=== PATIENT | male | born 1945 | race Caucasian/White ===

== ENCOUNTER → 2016-07-17 | Outpatient (CLI) | payer OTHER ==
[~2016-07-17] MED LIST: EZET10TA63 PO; FERR1TAB24 PO; GABA-113 PO; LOSA1TAB38 PO; MAGN400T6 PO; NORT10CA2 PO; NRV/10 PO; OXYC-643 PO; PRLSR20 PO; SNG10 PO; ZNF4 PO
[2016-07-17 13:45] LABS: BLOOD UREA NITROGEN 16 mg/dl (7-18); CREATININE 0.94 mg/dl (0.60-1.40); GLUCOSE 97 mg/dl (70-99)
[2016-07-17 13:46] LABS: ALT/SGPT 15 U/L (12-78); AST/SGOT 17 U/L (15-37); BUN/CREATININE RATIO 16.6 (10-20); CARBON DIOXIDE 29 mmol/L (21-32); CHLORIDE 104 mmol/L (98-107); POTASSIUM 3.8 mmol/L (3.5-5.1); SODIUM 141 mmol/L (136-145)
[2016-07-17 13:48] LABS: CHOLESTEROL 175 mg/dl (0-200); CHOLESTEROL/HDL RATIO 3.1; HDL CHOLESTEROL 57 mg/dl; LDL CHOLESTEROL CALCULATED 99 mg/dl; TRIGLYCERIDES 93 mg/dl (0-150); VERY LOW DENSITY LIPOPROT CALC 19 mg/dl
== END | disposition home or self-care (01) ==
LOC: C.LABMFLN 08:38
PROVIDERS: ATTEND Family Medicine
DX: I10 Essential (primary) hypertension (principal); E78.5 Hyperlipidemia, unspecified; E83.42 Hypomagnesemia

== ENCOUNTER → 2016-10-02 | Outpatient (CLI) | payer OTHER ==
[2016-10-02 14:04] LABS: BLOOD UREA NITROGEN 17 mg/dl (7-18); BUN/CREATININE RATIO 15.9 (10-20); CALCIUM 8.9 mg/dl (8.5-10.1); CARBON DIOXIDE 33 mmol/L (21-32); CHLORIDE 102 mmol/L (98-107); GLUCOSE 87 mg/dl (70-99); POTASSIUM 3.6 mmol/L (3.5-5.1); SODIUM 138 mmol/L (136-145)
[2016-10-02 14:28] LABS: BASO % 0.4 %; BASO ABS # 0.03 K/uL (0-0.2); COMPLETE YES; EOS % 0.7 %; HEMATOCRIT 40.1 % (42-52); IG% 0.1 %; LYMPH ABS # 2.13 K/uL (1.2-3.4); MEAN CELL VOLUME 87.6 fL (80-100); MEAN CORPUSCULAR HEMOGLOBIN 29.7 pg (25-34); MEAN CORPUSCULAR HGB CONC 33.9 g/dl (32-36); MONO % 10.2 %; NEUT % 59.6 %; PLATELET COUNT 228 K/uL (130-400); RED BLOOD COUNT 4.58 M/uL (4.7-6.1); WHITE BLOOD COUNT 7.35 K/uL (4.8-10.8)
== END | disposition home or self-care (01) ==
LOC: C.LABMFLN 08:33
PROVIDERS: ATTEND Family Medicine
DX: I10 Essential (primary) hypertension (principal); R60.9 Edema, unspecified; R00.2 Palpitations

== ENCOUNTER → 2017-01-02 | Outpatient (CLI) | payer OTHER ==
[2017-01-02 13:08] LABS: ALT/SGPT 20 U/L (12-78); AST/SGOT 13 U/L (15-37); BLOOD UREA NITROGEN 18 mg/dl (7-18); BUN/CREATININE RATIO 18.6 (10-20); CALCIUM 8.9 mg/dl (8.5-10.1); CARBON DIOXIDE 31 mmol/L (21-32); CHLORIDE 101 mmol/L (98-107); CHOLESTEROL 187 mg/dl (0-200); CREATININE 0.99 mg/dl (0.60-1.40); GLUCOSE 98 mg/dl (70-99); POTASSIUM 4.1 mmol/L (3.5-5.1); SODIUM 138 mmol/L (136-145); TRIGLYCERIDES 124 mg/dl (0-150); VERY LOW DENSITY LIPOPROT CALC 25 mg/dl
[2017-01-02 13:12] LABS: CHOLESTEROL/HDL RATIO 3.5; HDL CHOLESTEROL 54 mg/dl; LDL CHOLESTEROL CALCULATED 108 mg/dl; PROSTATE SPECIFIC ANTIGEN 0.787 ng/ml (0.000-4.000)
== END | disposition home or self-care (01) ==
LOC: C.LABMFLN 10:37
PROVIDERS: ATTEND Family Medicine
DX: I10 Essential (primary) hypertension (principal); E78.5 Hyperlipidemia, unspecified; E83.42 Hypomagnesemia; Z12.5 Encounter for screening for malignant neoplasm of prostate; R00.2 Palpitations

== ENCOUNTER 2022-01-17 08:38 | Inpatient (IN) ==
--- NOTE | 2021-12-14 09:15 | PAT Medication Instructions ---
Medication Instructions Date of Service December 14, 2021 Home Medications Medication Instructions Recorded albuterol sulfate 90 mcg/actuation 2 puffs inhalation Q4H PRN 07/18/18 aerosol inhaler shortness of breath or wheezing #18 grams tizanidine 4 mg tablet 4 mg PO ONCE PRN muscle spasticity 12/31/20 #90 tabs gabapentin 300 mg capsule 300 mg PO TID #240 caps 04/11/21 metoprolol succinate 25 mg 12.5 mg PO .QHS #45 tabs 08/11/21 tablet,extended release 24 hr oxycodone-acetaminophen 5 mg-325 2 tab PO Q6H PRN pain #100 tabs 09/12/21 mg tablet alendronate 70 mg tablet 70 mg PO WEEKLY #12 tabs 12/09/21 albuterol sulfate 90 mcg/actuation aerosol inhaler 2 puffs inhalation Q4H PRN tizanidine 4 mg tablet 4 mg PO ONCE PRN gabapentin 300 mg capsule 300 mg PO TID metoprolol succinate 25 mg tablet,extended release 24 hr 12.5 mg PO .QHS oxycodone-acetaminophen 5 mg-325 mg tablet 2 tab PO Q6H PRN alendronate 70 mg tablet 70 mg PO WEEKLY cetirizine 10 mg tablet (Zyrtec) 10 mg PO QAM ezetimibe 10 mg tablet 10 mg PO QPM ferrous sulfate 325 mg (65 mg iron) tablet (iron) 325 mg PO QAM losartan 100 mg tablet 100 mg PO QPM magnesium gluconate 27 mg magnesium (500 mg) tablet 27 mg PO QAM montelukast 10 mg tablet 10 mg PO QPM nortriptyline 10 mg capsule 10 mg PO QPM omeprazole 20 mg capsule,delayed release 20 mg PO QAM Continue as directed alendronate 70 mg tablet 70 mg PO WEEKLY (do NOT take day of surgery) DO NOT take the morning of surgery tizanidine 4 mg tablet 4 mg PO ONCE PRN cetirizine 10 mg tablet (Zyrtec) 10 mg PO QAM ferrous sulfate 325 mg (65 mg iron) tablet (iron) 325 mg PO QAM magnesium gluconate 27 mg magnesium (500 mg) tablet 27 mg PO QAM Take morning of surgery With a small sip of water, OTHERWISE NOTHING TO EAT OR DRINK AFTER MIDNIGHT: albuterol sulfate 90 mcg/actuation aerosol inhaler 2 puffs inhalation Q4H PRN (use if needed; please bring with you to hospital day of surgery if possible) gabapentin 300 mg capsule 300 mg PO TID oxycodone-acetaminophen 5 mg-325 mg tablet 2 tab PO Q6H PRN(if needed) omeprazole 20 mg capsule,delayed release 20 mg PO QAM Take evening before surgery albuterol sulfate 90 mcg/actuation aerosol inhaler 2 puffs inhalation Q4H PRN(if needed) gabapentin 300 mg capsule 300 mg PO TID metoprolol succinate 25 mg tablet,extended release 24 hr 12.5 mg PO .QHS oxycodone-acetaminophen 5 mg-325 mg tablet 2 tab PO Q6H PRN(if needed) ezetimibe 10 mg tablet 10 mg PO QPM losartan 100 mg tablet 100 mg PO QPM montelukast 10 mg tablet 10 mg PO QPM nortriptyline 10 mg capsule 10 mg PO QPM Other Notes If you have any questions please call us at [phone] or [phone] or [phone] or [phone]
--- NOTE | 2021-12-19 11:35 | Anesthesiology Consultation ---
Date of Service December 19, 2021 Assessment & Plan (1) Encounter for pre-operative examination: - COVID screening: Per assessment on 12/13: No known COVID-19 positive contacts or current COVID-19 related symptoms. Travel screen negative. Patient vaccinated. At surgeon discretion if preop Covid testing being done. - Patient acceptable risk for surgery pending surgeon-ordered PCP preop evaluation ([facility], appt 12/30). Chart Review Chart Review: Patient seen in Pre Admission Testing Teaching & Discussion Pre-Anesthesia Teaching/Discussion Notes: Instructed NPO after midnight before surgery,except medications with 15 cc of water. Medication instructions provided according to the PAT guidelines. History Surgery Operation Date: 01/17/22 11:05 Proposed Procedures p L3-L5 Decompression and Fusion, Spinal Cord Monitoring - Bryant Ayala DO Height/Weight Height: 5 ft 9 in Weight: 72.8 kg Allergies Allergy/AdvReac Type Severity Reaction Status Date / Time meloxicam AdvReac Unknown CHF Verified 12/13/21 13:25 Medications Home Medications Medication Instructions Recorded Confirmed Last Taken albuterol sulfate 90 mcg/actuation 2 puffs inhalation Q4H PRN 07/18/18 12/13/21 Unknown aerosol inhaler shortness of breath or wheezing #18 grams tizanidine 4 mg tablet 4 mg PO ONCE PRN muscle spasticity 12/31/20 12/13/21 Unknown #90 tabs gabapentin 300 mg capsule 300 mg PO TID #240 caps 04/11/21 12/13/21 Unknown metoprolol succinate 25 mg 12.5 mg PO .QHS #45 tabs 08/11/21 12/13/21 Unknown tablet,extended release 24 hr oxycodone-acetaminophen 5 mg-325 2 tab PO Q6H PRN pain #100 tabs 09/12/21 12/13/21 Unknown mg tablet alendronate 70 mg tablet 70 mg PO WEEKLY #12 tabs 12/09/21 12/13/21 Unknown cetirizine 10 mg tablet (Zyrtec) 10 mg PO QAM 12/13/21 12/13/21 Unknown ezetimibe 10 mg tablet 10 mg PO QPM 12/13/21 12/13/21 Unknown ferrous sulfate 325 mg (65 mg 325 mg PO QAM 12/13/21 12/13/21 Unknown iron) tablet (iron) losartan 100 mg tablet 100 mg PO QPM 12/13/21 12/13/21 Unknown magnesium gluconate 27 mg 27 mg PO QAM 12/13/21 12/13/21 Unknown magnesium (500 mg) tablet montelukast 10 mg tablet 10 mg PO QPM 12/13/21 12/13/21 Unknown nortriptyline 10 mg capsule 10 mg PO QPM 12/13/21 12/13/21 Unknown omeprazole 20 mg capsule,delayed 20 mg PO QAM 12/13/21 12/13/21 Unknown release Past Medical History Medical History Asthma Stable Benign essential hypertension Cervicalgia of ldqivmon-fhinpgm-gmbcx region GERD (gastroesophageal reflux disease) History of CHF (congestive heart failure) 10+ years ago felt 2/2 meloxicam reaction, previously evaluated by cardio, echo 05/2020 History of diverticulitis 5+ years ago [place] (hard of hearing) Hyperlipidemia Lumbar radiculopathy Osteopenia Osteoporosis Syncopal episodes 1+ years ago r/t hypotension - no issues since BP meds adjusted Thoracic outlet syndrome associated with cervical rib Exercise / Class Metabolic Activity III < 4 Walking/Shop/Light housework (one FS (no CP, + SOB)) Past Family History Family History Mother Cervical cancer Other Colonic polyp Colorectal cancer No family history of adverse response to anesthesia Past Surgical History Surgical History Cervical vertebral fusion limited ROM side to side H/O arthroscopic knee surgery Rt History of cataract surgery History of colonoscopy with polypectomy History of prostate biopsy benign History of tooth extraction History of umbilical hernia repair Past Anesthesia History No Hx of Anesthesia Complications and No Family Hx of Anesthesia Complications History of PONV No Hx of PONV and No Hx of Motion Sickness Social History tobacco type: pipe and cigars Do You Dip or Chew Tobacco: No Hx Alcohol Use: Yes alcohol intake frequency: holidays/special occasions only Hx Substance Use: No substance use type: does not use Review of Systems Hx palpitations s/p unremarkable holter monitoring per pt. Patient denies chest pain, shortness of breath, fever, chills, cough, wheezing. Physical Exam Vital Signs VITALS BP 128/75 P 63 TEMP 98.2 SP02 99%RA RESP 18 PHYSICAL Mildly decreased cervical extension range of motion. Full TMJ range of motion. TMD 3 finger breaths Mallampati Score 3 Dentition: upper plate with implants Lungs: clear throughout to auscultation Cardiac: regular rate and rhythm, no murmurs noted Spine: normal Carotid arteries: negative bruit Extremities: no edema Lab Results Anesthesia Preop Results Results Anesthesia Widget: WBC 8.59 K/ul (4.8-10.8) 12/19/21 Hgb 12.9 g/dl (14.0-18.0) L 12/19/21 Hct 38.7 % (40.1-51.0) L 12/19/21 Plt 249 K/uL (130-400) 12/19/21 Na 139 mmol/L (136-145) 12/19/21 K 3.9 mmol/L (3.5-5.1) 12/19/21 Cl 103 mmol/L (98-107) 12/19/21 CO2 31 mmol/L (21-32) 12/19/21 BUN 22 mg/dl (6-23) 12/19/21 Creat 0.95 mg/dl (0.6-1.4) 12/19/21 Glucose Level 87 mg/dl (70-99(Fasting)) 12/19/21 PT 10.6 Seconds (9.0-12.0) 12/19/21 PTT 28.8 Seconds (21.0-31.0) 12/19/21 INR 1.0 (0.9-1.1) 12/19/21 Urine Color Yellow 12/19/21 Urine Appearance Clear (Clear) 12/19/21 Urine pH 7.0 (4.5-7.5) 12/19/21 Urine Specific [place] 1.019 (1.000-1.030) 12/19/21 Urine Protein 1+ (Negative) H 12/19/21 Urine Glucose (UA) Negative (Negative) 12/19/21 Urine Ketones Negative (Negative) 12/19/21 Urine Blood Negative (Negative) 12/19/21 Urine Nitrite Negative (Negative) 12/19/21 Urine Bilirubin Negative (Negative) 12/19/21 Urine Urobilinogen Negative (Negative) 12/19/21 Urine Leukocyte Esterase Negative (Negative) 12/19/21 Urine WBC (Auto) 1-5 /hpf (0-5) 12/19/21 Urine RBC (Auto) 0-4 /hpf (0-4) 12/19/21 Urine Hyaline Casts (Auto) 1-5 /lpf (0-5) 12/19/21 Urine Epithelial Cells (Auto) 10-20 /lpf (0-5) H 12/19/21 Urine Bacteria (Auto) Negative (Negative) 12/19/21 Blood Type A Negative 12/19/21 Antibody Screen NEGATIVE 12/19/21 Testing Electrocardiogram Date: 12/19/21 NSR at 63bpm. Rightward axis. Chest X-Ray Date: 12/19/21 Findings: + NAD Echocardiogram Date: 05/26/20 EF 65-70%. No RWMA. No significant change compared to 10/05/16 per report. COVID-19 Risk Screen Screening Information COVID-19 Screen Date: 12/19/21 Exposure 21 Days Family/Household +COVID Last 21 Days: No Exposure 10 Days Any COVID Exposure Last 10 Days: No Symptoms Last 10 Days Experienced COVID Sx Last 10 Days: No + COVID 0-90 Days COVID + in Last 0-90 Days: No
[~2022-01-17 08:38] MED LIST changes: +ACETAMINOPHEN 500 MG TAB PO SCH; +CeleBREX 200 MG CAP PO SCH; -EZET10TA63 PO; -FERR1TAB24 PO; -GABA-113 PO; +GABAPENTIN 300 MG CAP PO SCH; -LOSA1TAB38 PO; +LR 15ML/HR IV SCH; -MAGN400T6 PO; -NORT10CA2 PO; -NRV/10 PO; -OXYC-643 PO; -PRLSR20 PO; -SNG10 PO; -ZNF4 PO; +ceFAZolin 2000MG 2,000 MG/15 ML SYR IV SCH
[2022-01-17] MEDS ORDERED: fentaNYL citrate 100 MCG/2 ML VIAL ONE ×2 (09:32→12:39)
[2022-01-17] MEDS ORDERED: MIDAZOLAM HCL 1 MG/ML 2ML VIAL ONE (09:32)
--- NOTE | 2022-01-17 09:51 | History & Physical Bridge Note ---
Date of Service January 17, 2022 History & Physical Bridge Note I have examined the patient, reviewed the History & Physical and in the interval since the performance of the History & Physical I have noted the following changes of clinical significance: no changes noted
--- NOTE | 2022-01-17 09:52 | History & Physical Report ---
Date of Service January 17, 2022 Assessment & Plan (1) Lumbar spinal stenosis: Plan: Lumbar decompression and fusion L3-L5. History of Present Illness Chief Complaint: Back and leg pain Primary Care Provider: Preston Green MD This is a 76-year-old male who presents with chronic persistent back and leg pain after failing course of nonoperative care is here for surgical invention. Allergies Allergy/AdvReac Type Severity Reaction Status Date / Time meloxicam AdvReac Unknown CHF Verified 01/17/22 09:12 Home Medications Medication Instructions Recorded Confirmed Type tizanidine 4 mg tablet 4 mg PO ONCE PRN muscle spasticity 12/31/20 01/17/22 Rx #90 tabs metoprolol succinate 25 mg 12.5 mg PO .QHS #45 tabs 08/11/21 01/17/22 Rx tablet,extended release 24 hr alendronate 70 mg tablet 70 mg PO WEEKLY #12 tabs 12/09/21 01/17/22 Rx cetirizine 10 mg tablet (Zyrtec) 10 mg PO QAM 12/13/21 01/17/22 History ezetimibe 10 mg tablet 10 mg PO QPM 12/13/21 01/17/22 History ferrous sulfate 325 mg (65 mg 325 mg PO QAM 12/13/21 01/17/22 History iron) tablet (iron) losartan 100 mg tablet 100 mg PO QPM 12/13/21 01/17/22 History magnesium gluconate 27 mg 27 mg PO QAM 12/13/21 01/17/22 History magnesium (500 mg) tablet montelukast 10 mg tablet 10 mg PO QPM 12/13/21 01/17/22 History albuterol sulfate 90 mcg/actuation 2 puff inhalation Q4H PRN 12/30/21 01/17/22 Rx aerosol inhaler shortness of breath or wheezing #18 grams oxycodone-acetaminophen 5 mg-325 2 tab PO Q6H PRN pain #100 tabs 12/30/21 01/17/22 Rx mg tablet gabapentin 300 mg capsule 300 mg PO TID #270 caps 01/10/22 01/17/22 Rx nortriptyline 10 mg capsule 10 mg PO QPM #90 caps 01/10/22 01/17/22 Rx omeprazole 20 mg capsule,delayed 20 mg PO QAM #90 caps 01/10/22 01/17/22 Rx release Past Med/Surg History Medical History Asthma Benign essential hypertension Cervicalgia of lfuiqlbo-phdegvr-cnhlz region GERD (gastroesophageal reflux disease) History of CHF (congestive heart failure) History of diverticulitis [place] (hard of hearing) Hyperlipidemia Lumbar radiculopathy Lumbar spinal stenosis Osteopenia Osteoporosis Syncopal episodes Thoracic outlet syndrome associated with cervical rib Surgical History Cervical vertebral fusion H/O arthroscopic knee surgery History of cataract surgery History of colonoscopy with polypectomy History of prostate biopsy History of tooth extraction History of umbilical hernia repair Family History Mother Cervical cancer Other Colonic polyp Colorectal cancer No family history of adverse response to anesthesia Social History Age Started Using Tobacco: 20; Age Quit Using Tobacco: 22; Second Hand Exposure: Yes (hx as a child); Do You Dip or Chew Tobacco: No; Hx Alcohol Use: Yes Hx Substance Use: Yes Preferred Language: Micronesian Communication Ability: Effective Visual Impairment: No Limitations Hearing Ability: Normal Mold Cleaner Required: No Beliefs That Will Affect Care: None marital status: Current Living Situation: Spouse current occupational status: retired Feels Safe at Home: Yes Safety Concerns: Feels Safe At This Time Dental Care, Regularly: Yes Physical Activity Frequency: Daily Seatbelt Use: always Assistive Devices: Denture - Upper and Glasses Assistive Devices Comment: glasses for reading Physical Exam Physical Exam: Patient is alert and oriented Heart regular rhythm Lungs clear Results & Data Results & Data ([facility]) Vital Signs (Past 12 Hours) Vital Signs Temp Pulse Resp BP Pulse Ox O2 Del Method 01/17/22 09:13 36.7 C 66 20 157/69 H 100 Room Air
[2022-01-17] MEDS ORDERED: ONDANSETRON INJ 2 MG/ML 2 ML VIAL ONE (10:06)
[2022-01-17] MEDS ORDERED: GLYCOPYRROLATE 0.2 MG/ML VIAL ONE (10:06)
[2022-01-17] MEDS ORDERED: PROPOFOL IV EMULSION 10 MG/ML 20 ML VIAL IV ONE (10:06)
[2022-01-17] MEDS ORDERED: DEXAMETHASONE SOD INJ 4 MG/ML VIAL ONE (10:06)
[2022-01-17] MEDS ORDERED: NEOSTIGMINE METHYLSULFATE 1 MG/ML 10ML VIAL ONE (10:06)
[2022-01-17] MEDS ORDERED: LIDOCAINE 2% MPF LOCAL 5 ML VIAL INFIL ONE (10:06)
[2022-01-17] MEDS ORDERED: ROCURONIUM BROMIDE 10 MG/ML 5 ML VIAL IV ONE ×3 (10:06→13:06)
[2022-01-17] MEDS ORDERED: BUPIVACAINE/EPINEPHRINE 0.25% 1:200,000 30 ML VIAL ONE (10:17)
[2022-01-17] MEDS ORDERED: ceFAZolin 330 MG/ML 1 GM VIAL ONE (10:18)
[2022-01-17] MEDS ORDERED: HYDROmorphone INJ 2 MG/ML SYR/VIAL ONE (10:49)
[2022-01-17] MEDS ORDERED: ATROPINE SULFATE 0.1 MG/ML 10ML SYR IV PRN (11:05)
[2022-01-17] MEDS ORDERED: HYDROmorphone INJ 2 MG/ML SYR/VIAL IV PRN (11:05)
[2022-01-17] MEDS ORDERED: ePHEDrine sulfate 50 MG/ML AMP IV PRN (11:05)
[2022-01-17] MEDS ORDERED: fentaNYL citrate 100 MCG/2 ML VIAL IV PRN (11:05)
[2022-01-17] MEDS ORDERED: FLOSEAL HEMOSTATIC MATRIX 10ML TOP ONE ×2 (11:41→12:02)
--- NOTE | 2022-01-17 12:40 | Operative Report ---
Post Operative Report Pre & Post Diagnosis Operation Date: 01/17/22 10:05 Pre-Op Diagnosis: Lumbar spinal stenosis with neurogenic claudication Post-Op Diagnosis: Same I identified the patient and participated in the time-out.: Yes Procedure Operation Date: 01/17/22 10:05 Actual Procedures #1 lumbar decompression with bilateral medial facetectomies and foraminotomies L2-L3, L3-L4 and L4-L5. #2 posterior spinal fusion L3-L4 L4-L5. #3 placement posterior instrumentation L3-L4 L4-L5. #4 interbody fusion L3-L4 and L4-L5. #5 placement of Spira 13 x 26 mm cage at L3-L4 and L4-L5. #6 placement of locally harvested morselized autograft in the posterior gutters. #7 placement of I factor combined with V toss in the interbody space and posterior lateral gutters. Surgeon Bryant Ayala DO Electric Tripper Machine Operator Kia Singh Estimated Blood Loss 450 Findings Consistent with Post-Op Diagnosis Specimens None Indications This is a 76-year-old male who presents above-mentioned diagnosis after failed course of nonoperative care is here for surgical invention. Description of Procedure Patient was met with identified informed consent obtained. Patient was then taken to the operative suite underwent patient placed in a prone position the [place] table top Ankush frame. All bony prominences well-padded eyes inspected to ensure no external pressure placed upon them. This point the lumbar spine was prepped and draped in normal sterile fashion. Sharp dissection with the assistance of Bovie cautery was performed down to and exposing the lamina and transverse processes of L3-L4-L5. From caudal to cephalad fashion complete laminectomy of L4 L3 and partial laminectomy of L2 was performed including bilateral medial facetectomies and foraminotomies addressing severe spinal stenosis. Pedicle screws then placed at L3 L4-5 bilaterally with assistance of fluoroscopy and appropriate sized marcello placed. By way of a transfemoral approach and right complete discectomy of L4-L5 was performed endplates curetted to subcortical bleeding bone and a 13 x 26 mm spiral cage with I factor tapped into position. Then proceeded to L3-L4 and again by way of a transforaminal approach on the right complete discectomy was performed endplates curetted to subcortically bone and again a 13 x 26 mm spiral cage with I factor tapped in position. The rods were then locked into final position bilaterally. The transverse processes of L3 L4-5 burred to subcortical bleeding bone. I factor model V toss and locally harvested morselized autograft was placed in the posterior gutters. 15 round ETIENNE drain inserted. The incision was then closed with 1 Vicryl the fascia 2-0 Vicryl subcutaneously and 4 Monocryl for final skin closure. Steri-Strips dressings placed. Patient waken taken to PACU in stable condition. Please note spinal cord monitoring was utilized at the procedure no changes noted. Lastly Kia Singh was present out the entire surgery and while the patient positioning complex portions of the surgery and final skin closure. I attest to the content of the Intraoperative Record and any orders documented therein. Any exceptions are noted below.
--- NOTE | 2022-01-17 13:05 | Fluoroscopy Report ---
FL lumbar spine 2-3V CLINICAL HISTORY: L3-5 DFI COMPARISON STUDY: None. FLUOROSCOPY TIME: 20 seconds. FINDINGS: 2 fluoroscopic spot images of the lumbar spine demonstrate posterior decompression fusion a t L3-L5 with pedicle screws and rods. Hardware appears intact. There are no sponges at the surgical s ite. IMPRESSION: Fluoroscopic assistance provided for L3-L5 posterior decompression and fusion. ACT 112: Negative or not required by law. Electronically signed by: Russell Mao M.D. 01/17/2022 1:04 PM
[2022-01-17] MEDS ORDERED: ePHEDrine sulfate 50 MG/ML AMP ONE (13:07)
--- NOTE | 2022-01-17 13:41 | Anesthesiology Progress Note ---
Date of Service January 17, 2022 Anesthesia Post Procedure Vital Signs Vital Signs: Temp Pulse Pulse Resp BP Pulse Ox O2 Del Method 01/17/22 13:30 36.2 C L 67 14 103/48 L 99 Room Air 01/17/22 13:20 65 17 114/52 L 97 Room Air 01/17/22 13:10 66 13 119/51 L 100 Oxymask 01/17/22 13:00 69 20 114/53 L 100 Oxymask 01/17/22 12:54 36.1 C L 72 15 129/59 L 100 Oxymask 01/17/22 09:13 36.7 C 66 20 157/69 H 100 Room Air O2 Flow Rate 01/17/22 13:30 01/17/22 13:20 01/17/22 13:10 4 01/17/22 13:00 4 01/17/22 12:54 4 01/17/22 09:13 Pain Intensity Lower Back: Pain Intensity: 2 Transfer of Care Handoff Completed per policy Notes Mental Status: alert / awake / arousable and participated in evaluation Patient Amnestic to Procedure: Yes Nausea / Vomiting: adequately controlled Pain: adequately controlled Airway Patency, RR, SpO2: stable & adequate BP & HR: stable & adequate Hydration State: stable & adequate Anesthetic Complications: no major complications apparent
[2022-01-17] MEDS ORDERED: HYDROmorphone INJ 1 MG/ML SYRINGE IV PRN (14:28)
[2022-01-17] MEDS ORDERED: ONDANSETRON INJ 2 MG/ML 2 ML VIAL IV PRN (14:28)
[2022-01-17] MEDS ORDERED: tiZANidine HCL 4 MG TABLET PO PRN (14:28)
[2022-01-17] MEDS ORDERED: LORazepam 0.5 MG in SYRINGE 0 ML IV PRN (14:28)
[2022-01-17] MEDS ORDERED: MAGNESIUM HYDROXIDE SUSP 30 ML UDC PO PRN (14:28)
[2022-01-17] MEDS ORDERED: traMADol HCL 50 MG TABLET PO PRN (14:28)
[2022-01-17] MEDS ORDERED: ONDANSETRON 4 MG OD TAB PO PRN (14:28)
[2022-01-17] MEDS ORDERED: LORazepam 0.5 MG TAB PO PRN (14:28)
[2022-01-17] MEDS ORDERED: ALUMINUM/MAGNESIUM SUSP 30 ML UDC PO PRN (14:28)
[2022-01-17] MEDS ORDERED: NALOXONE HCL 0.4 MG/1 ML VIAL/CARP IV PRN (14:28)
[2022-01-17] MEDS ORDERED: METOCLOPRAMIDE HCL INJ 5 MG/ML 2 ML VIAL IV PRN (14:28)
[2022-01-17] MEDS ORDERED: PROMETHAZINE HCL 12.5 MG in SODIUM CHLORIDE 0.9% 50 ML IV PRN (14:28)
[2022-01-17] MEDS ORDERED: HYDROmorphone INJ 0.5 MG/0.5 ML SYR IV PRN (14:28)
[2022-01-17] MEDS ORDERED: bisacodyL 10 MG SUPP PR PRN (14:28)
[2022-01-17] MEDS ORDERED: diphenhydrAMINE Capsule 25 MG CAP PO PRN (14:28)
[2022-01-17] MEDS ORDERED: SOD PHOSPHATE/SOD BIPHOSPHATE ENEMA 132 ML BTL PR PRN (14:28)
[2022-01-17] MEDS ORDERED: ACETAMINOPHEN 1,000 MG/100 ML VIAL IV PRN (14:28)
[2022-01-17] MEDS ORDERED: ALBUTEROL HFA 8 GM INHALER INH PRN (14:28)
[2022-01-17] MEDS ORDERED: DO NOT ADMINISTER FLU VACCINE PRN (14:28)
[2022-01-17] MEDS ORDERED: DO NOT ADMINISTER PNEUMOCOCCAL VACCINE PRN (14:28)
[2022-01-17] MEDS ORDERED: ACETAMINOPHEN 500 MG TAB PO PRN (14:28)
[2022-01-17] MEDS ORDERED: FAMOTIDINE 20 MG TAB PO PRN (14:28)
[2022-01-17] MEDS ORDERED: hydrOXYzine HCl 25 MG TAB PO PRN (14:28)
[2022-01-17] MEDS: oxyCODONE HCL IR 5 MG TAB (IMMEDIATE RELEASE) PO PRN ×2 (15:42→20:01)
[2022-01-17] MEDS: LACTATED RINGER'S 1,000 ML IV SCH (15:43)
--- NOTE | 2022-01-17 16:23 | Hospitalist Consultation ---
Date of Consultation January 17, 2022 Assessment & Plan (1) Lumbar spinal stenosis: Patient underwent L3-5 decompression and fusion by Dr. Ayala on 03/20/2021 [address] drain is in place patient has good distal sensation and strength postoperatively (2) Osteoporosis: Patient instituted on Fosamax preoperatively (3) Thoracic outlet syndrome: Diagnosed because of cervical ribs in the patient's 50s. Patient typically takes gabapentin and tizanidine and nortriptyline scheduled to relieve pain from this (4) Hyperlipidemia: Patient is on Ezetimibe continues (5) Benign essential hypertension: Patient is on losartan 100 and metoprolol 25 extended release these will continue following for postoperative hypotension we will not give his antihypertensive losartan until the eighth History of Present Illness Attending Physician: Bryant Ayala, DO History of Present Illness 76-year-old male underwent L3-[address] Ayala on 01/17/2022 Patient is doing well postoperatively Allergies Allergy/AdvReac Type Severity Reaction Status Date / Time meloxicam AdvReac Unknown CHF Verified 01/17/22 09:12 Home Medications Medication Instructions Recorded Confirmed Type tizanidine 4 mg tablet 4 mg PO ONCE PRN muscle spasticity 12/31/20 01/17/22 Rx #90 tabs metoprolol succinate 25 mg 12.5 mg PO .QHS #45 tabs 08/11/21 01/17/22 Rx tablet,extended release 24 hr alendronate 70 mg tablet 70 mg PO WEEKLY #12 tabs 12/09/21 01/17/22 Rx cetirizine 10 mg tablet (Zyrtec) 10 mg PO QAM 12/13/21 01/17/22 History ezetimibe 10 mg tablet 10 mg PO QPM 12/13/21 01/17/22 History ferrous sulfate 325 mg (65 mg 325 mg PO QAM 12/13/21 01/17/22 History iron) tablet (iron) losartan 100 mg tablet 100 mg PO QPM 12/13/21 01/17/22 History magnesium gluconate 27 mg 27 mg PO QAM 12/13/21 01/17/22 History magnesium (500 mg) tablet montelukast 10 mg tablet 10 mg PO QPM 12/13/21 01/17/22 History albuterol sulfate 90 mcg/actuation 2 puff inhalation Q4H PRN 12/30/21 01/17/22 Rx aerosol inhaler shortness of breath or wheezing #18 grams oxycodone-acetaminophen 5 mg-325 2 tab PO Q6H PRN pain #100 tabs 12/30/21 01/17/22 Rx mg tablet gabapentin 300 mg capsule 300 mg PO TID #270 caps 01/10/22 01/17/22 Rx nortriptyline 10 mg capsule 10 mg PO QPM #90 caps 01/10/22 01/17/22 Rx omeprazole 20 mg capsule,delayed 20 mg PO QAM #90 caps 01/10/22 01/17/22 Rx release Patient History Medical History Asthma Benign essential hypertension Cervicalgia of ienuppie-bymlqpn-qcojw region GERD (gastroesophageal reflux disease) History of CHF (congestive heart failure) History of diverticulitis [place] (hard of hearing) Hyperlipidemia Lumbar radiculopathy Lumbar spinal stenosis Osteopenia Osteoporosis Syncopal episodes Thoracic outlet syndrome associated with cervical rib Surgical History Cervical vertebral fusion H/O arthroscopic knee surgery History of cataract surgery History of colonoscopy with polypectomy History of prostate biopsy History of tooth extraction History of umbilical hernia repair Family History Mother Cervical cancer Other Colonic polyp Colorectal cancer No family history of adverse response to anesthesia Social History Age Started Using Tobacco: 20; Age Quit Using Tobacco: 22; Second Hand Exposure: Yes (hx as a child); Do You Dip or Chew Tobacco: No; Hx Alcohol Use: Yes Hx Substance Use: Yes Preferred Language: Telugu Communication Ability: Effective Visual Impairment: No Limitations Hearing Ability: Normal Ticket Printer Required: No Beliefs That Will Affect Care: None marital status: Current Living Situation: Spouse current occupational status: retired Feels Safe at Home: Yes Safety Concerns: Feels Safe At This Time Dental Care, Regularly: Yes Physical Activity Frequency: Daily Seatbelt Use: always Assistive Devices: Denture - Upper and Glasses Assistive Devices Comment: glasses for reading Review of Systems Review of Systems: Mild distress and fatigue back pain is improved he does have some difficulty turning his head due to his thoracic outlet syndrome no headache, no visual changes no speech or swallowing issues no chest pain, pressure or palpitations no shortness of breath, cough or wheezes no abdominal pain, nausea or vomiting, diarrhea or constipation no dysuria, hematuria or frequency no focal joint pain or swelling Postoperative back pain and no ETIENNE drain with serosanguineous fluid within it no bruising, bleeding or rashes no focal signs of weakness or numbness or altered sensation no complaints of anxiety or depression.. Physical Exam Physical Exam: The patient appeared well nourished and normally developed. Vital signs as documented. Head exam is normocephalic atraumatic Neck is without JVD, thyromegaly, or carotid bruits. Lungs are clear to auscultation, no focal loss of breath sounds Cardiac exam, Rhythm is regular.. No murmurs, rubs or gallops. Abdominal exam reveals normal bowel sounds, soft non tender, no masses Extremities are nonedematous and both pedal pulses are present Neurologic exam is alert and oriented, no focal loss of strength or sensation Did not examine surgical site due to his position Psychologically is without concerns for anxiety or depression.. Results & Data Results & Data ([facility]) Vital Signs (Past 12 Hours) Vital Signs Temp Pulse Pulse Resp BP Pulse Ox O2 Del Method 01/17/22 15:30 98.1 F 82 18 100/82 98 Room Air 01/17/22 14:30 73 17 114/50 L 98 Room Air 01/17/22 14:00 68 16 111/55 L 99 Room Air 01/17/22 13:30 97.2 F L 67 14 103/48 L 99 Room Air 01/17/22 13:20 65 17 114/52 L 97 Room Air 01/17/22 13:10 66 13 119/51 L 100 Oxymask 01/17/22 13:00 69 20 114/53 L 100 Oxymask 01/17/22 12:54 97.0 F L 72 15 129/59 L 100 Oxymask 01/17/22 09:13 98.1 F 66 20 157/69 H 100 Room Air O2 Flow Rate 01/17/22 15:30 01/17/22 14:30 01/17/22 14:00 01/17/22 13:30 01/17/22 13:20 01/17/22 13:10 4 01/17/22 13:00 4 12/06/22 12:54 4 01/17/22 09:13 PG Care Time/CCT Total # of Minutes Spent Total Time Spent with Patient: Total time spent is greater than 50% in coordination of care (as documented) at patient's floor/unit and/or counseling patient: Coding Level of Care Code 09828 Inpt Consult Level 3 Diagnoses Lumbar spinal stenosis M48.061 Osteoporosis M81.0 Thoracic outlet syndrome G54.0 Hyperlipidemia E78.5 Benign essential hypertension I10
[2022-01-17] MEDS: GABAPENTIN 300 MG CAP PO SCH ×2 (16:41→20:03)
[2022-01-17] MEDS: ceFAZolin 2000MG 2,000 MG/15 ML SYR IV SCH (20:01)
[2022-01-17] MEDS: DOCUSATE SODIUM/SENNA 50/8.6MG TAB PO SCH (20:02)
[2022-01-17] MEDS: EZETIMIBE 10 MG TABLET PO SCH (20:02)
[2022-01-17] MEDS: METOPROLOL SUCC 25MG EXT REL TAB PO SCH (20:03)
[2022-01-17] MEDS: NORTRIPTYLINE HCL 10 MG CAP PO SCH (20:04)
[2022-01-17] MEDS: MONTELUKAST SODIUM 10 MG TABLET PO SCH (20:04)
[2022-01-17] MEDS: tiZANidine HCL 4 MG TABLET PO SCH (20:05)
[2022-01-17] MEDS ORDERED: LOSARTAN POTASSIUM 50 MG TAB PO SCH (21:00)
[2022-01-18] MEDS: oxyCODONE HCL IR 5 MG TAB (IMMEDIATE RELEASE) PO PRN ×5 (00:33→21:33)
[2022-01-18] MEDS ORDERED: NURSING DECISION MEDICATION ONE (00:39)
[2022-01-18] MEDS: LACTATED RINGER'S 1,000 ML IV SCH (00:39)
[2022-01-18] MEDS ORDERED: COUGH DROP (SUGAR FREE) LOZ 24 LOZ/1 BOX BUCCAL PRN (00:49)
[2022-01-18] MEDS: ceFAZolin 2000MG 2,000 MG/15 ML SYR IV SCH (04:55)
[2022-01-18] MEDS: POLYETHYLENE (MIRALAX) 17 GM PACK PO SCH ×3 (05:25→18:58)
[2022-01-18 06:49] LABS: Basophils # (auto) 0.02 K/uL (0-0.2); Basophils % (auto) 0.1 %; Hematocrit (blood only) 30.1 % (40.1-51.0); Hemoglobin 10.1 g/dl (14.0-18.0); Immature Granulocytes # (auto) 0.08 K/uL (0.00-0.02); Immature Granulocytes % (auto) 0.5 %; Lymphocytes % (auto) 8.2 %; Mean Corpuscular Hemoglobin 30.3 pg (25.0-34.0); Mean Corpuscular Hgb Conc 33.6 g/dL (32.0-36.0); Mean Corpuscular Volume 90.4 fL (80.0-100.0); Mean Platelet Volume 10.9 fL (9.4-12.4); Monocytes # (auto) 1.46 K/uL (0.24-0.82); Monocytes % (auto) 9.2 %; Neutrophils # (auto) 13.06 K/uL (1.4-6.5); Platelet Count 222 K/uL (130-400); RDW Coefficient of Variation 13.5 % (11.5-14.5); RDW Standard Deviation 44.7 fL (36.4-46.3); Red Blood Count 3.33 M/uL (4.63-6.08); White Blood Count 15.92 K/ul (4.8-10.8)
[2022-01-18 07:14] LABS: BUN Creatinine Ratio 23.4 (10-20); Calcium 8.2 mg/dl (8.5-10.1); Creatinine Clr Calc Pharmacy 65.8 ml/min; Est GFR (African American) 90.9 ml/min; Est GFR (Non-African American) 78.4 ml/min; Potassium 4.3 mmol/L (3.5-5.1)
[2022-01-18] MEDS ORDERED: NON-FORMULARY MEDICATION (Magnesium Gluconate 27 mg magnesium (500 mg) tablet) PO SCH (09:00)
[2022-01-18] MEDS: CETIRIZINE HCL 10 MG TABLET PO SCH (09:26)
[2022-01-18] MEDS: PANTOprazole 40 MG TAB PO SCH (09:26)
[2022-01-18] MEDS: GABAPENTIN 300 MG CAP PO SCH ×3 (09:26→21:17)
[2022-01-18] MEDS: FERROUS SULFATE 325 MG TAB PO SCH (09:26)
[2022-01-18] MEDS: dexAMETHasone 6 MG in SYRINGE 0 ML IV SCH (09:27)
--- NOTE | 2022-01-18 10:02 | Orthopedic Progress Note ---
Date of Service January 18, 2022 Assessment & Plan (1) Lumbar spinal stenosis: Plan: Patient will continue with physical therapy monitor his ETIENNE operatively discharge home in next few days. Admission and Anticipated Discharge Date Admission Date: January 17, 2022 Subjective Patient's back pain is controlled leg symptoms improved Physical Exam Physical Exam: Patient is up and ambulating. Is good strength testing. Results & Data ([facility]) Vital Signs (Past 12 Hours) Vital Signs Temp Pulse Resp BP Pulse Ox O2 Del Method 01/18/22 07:34 36.5 C 81 16 108/62 100 Room Air 01/18/22 03:38 36.6 C 70 18 115/63 99 Room Air 01/17/22 23:12 36.6 C 69 18 113/68 97 Room Air
--- NOTE | 2022-01-18 16:59 | Hospitalist Progress Note ---
Date of Service January 18, 2022 Assessment & Plan (1) Lumbar spinal stenosis: Plan: Patient underwent L3-5 decompression and fusion by Dr. Ayala on 03/20/2021 [address] drain is in place patient has good distal sensation and strength postoperatively Patient has acute blood loss anemia postoperatively with hemoglobin dropped 2 g he is cardiovascularly stable and not in need of any transfusion at this point time (2) Osteoporosis: Plan: Patient instituted on Fosamax preoperatively (3) Thoracic outlet syndrome: Plan: Diagnosed because of cervical ribs in the patient's 50s. Patient typically takes gabapentin and tizanidine and nortriptyline scheduled to relieve pain from this (4) Hyperlipidemia: Plan: Patient is on Ezetimibe continues (5) Benign essential hypertension: Plan: Patient is on losartan 100 and metoprolol 25 extended release these will continue following for postoperative hypotension we will not give his antihypertensive losartan until the eighth Admission and Anticipated Discharge Date Admission Date: January 17, 2022 Subjective Patient is doing well postoperatively. ETIENNE drain fluid is serosanguineous fluid. Patient has no leg pain. He has typical postoperative back pain. Review of Systems Review of Systems: Mild distress and fatigue back pain is improved he does have some difficulty turning his head due to his thoracic outlet syndrome no headache, no visual changes no speech or swallowing issues no chest pain, pressure or palpitations no shortness of breath, cough or wheezes no abdominal pain, nausea or vomiting, diarrhea or constipation no dysuria, hematuria or frequency no focal joint pain or swelling Postoperative back pain and no ETIENNE drain with serosanguineous fluid within it no bruising, bleeding or rashes no focal signs of weakness or numbness or altered sensation no complaints of anxiety or depression.. Physical Exam Physical Exam: The patient appeared well nourished and normally developed. Vital signs as documented. Head exam is normocephalic atraumatic Neck is without JVD, thyromegaly, or carotid bruits. Lungs are clear to auscultation, no focal loss of breath sounds Cardiac exam, Rhythm is regular.. No murmurs, rubs or gallops. Abdominal exam reveals normal bowel sounds, soft non tender, no masses Extremities are nonedematous and both pedal pulses are present Neurologic exam is alert and oriented, no focal loss of strength or sensation Did not examine surgical site due to his position Psychologically is without concerns for anxiety or depression.. Results & Data Results & Data ([facility]) Vital Signs (Past 12 Hours) Vital Signs Temp Pulse Resp BP Pulse Ox O2 Del Method 01/18/22 15:06 98.1 F 82 20 114/78 97 Room Air 01/18/22 09:30 Room Air 01/18/22 07:34 97.7 F 81 16 108/62 100 Room Air PG Care Time/CCT Total # of Minutes Spent Total Time Spent with Patient: Total time spent is greater than 50% in coordination of care (as documented) at patient's floor/unit and/or counseling patient: Coding Level of Care Code 25326 Subseq Hosp Care Lvl 2 Diagnoses Lumbar spinal stenosis M48.061 Osteoporosis M81.0 Thoracic outlet syndrome G54.0 Hyperlipidemia E78.5 Benign essential hypertension I10
[2022-01-18] MEDS: MONTELUKAST SODIUM 10 MG TABLET PO SCH (21:17)
[2022-01-18] MEDS: NORTRIPTYLINE HCL 10 MG CAP PO SCH (21:17)
[2022-01-18] MEDS: tiZANidine HCL 4 MG TABLET PO SCH (21:18)
[2022-01-18] MEDS: DOCUSATE SODIUM/SENNA 50/8.6MG TAB PO SCH (21:33)
[2022-01-18] MEDS: METOPROLOL SUCC 25MG EXT REL TAB PO SCH (22:39)
[2022-01-18] MEDS: EZETIMIBE 10 MG TABLET PO SCH (22:39)
[2022-01-19] MEDS: POLYETHYLENE (MIRALAX) 17 GM PACK PO SCH ×3 (01:06→12:02)
[2022-01-19] MEDS: oxyCODONE HCL IR 5 MG TAB (IMMEDIATE RELEASE) PO PRN ×2 (05:37→12:04)
[2022-01-19] MEDS: CETIRIZINE HCL 10 MG TABLET PO SCH (09:14)
[2022-01-19] MEDS: FERROUS SULFATE 325 MG TAB PO SCH (09:15)
[2022-01-19] MEDS: PANTOprazole 40 MG TAB PO SCH (09:15)
[2022-01-19] MEDS: GABAPENTIN 300 MG CAP PO SCH (09:15)
[2022-01-19] MEDS: dexAMETHasone 6 MG in SYRINGE 0 ML IV SCH (09:16)
--- NOTE | 2022-01-19 11:11 | Discharge Summary ---
Date of Service January 19, 2022 Admission HPI Per Admitting Provider This is a 76-year-old male who presents with chronic persistent back and leg pain after failing course of nonoperative care is here for surgical invention. Principal Diagnosis Lumbar spinal stenosis with neurogenic claudication Discharge Data Allergies Allergy/AdvReac Type Severity Reaction Status Date / Time meloxicam AdvReac Unknown CHF Verified 01/17/22 09:12 Consultations 01/17/22 14:28 Consult Hospitalist Routine Procedures Performed Operation Date: 01/17/22 10:05 Actual Procedures p L3-L5 Decompression and Fusion with Spinal Cord Monitoring(Not Applicable) - Bryant Ayala DO Ordered Studies 01/17/22 10:05 [place] lumbar spine 2-3V Routine Hospital Course (1) Lumbar spinal stenosis: Patient with lumbar decompression fusion tolerated this well was taken to the orthopedic floor postoperatively postop day #1 is up and ambulating progressed to postop day 2. Pain well controlled. ETIENNE drain decreased fluid. Excellent strength testing. Subsequently discharged home. Discharge orders and ins tructions on the chart for further review. Total Time Total Time Spent Total Time Spent (In Minutes): 20 minutes Discharge Plan Discharge Items Patient Disposition: Home - Self-Care Reason For Visit: Spinal Stenosis, Lumbar Region with Neurogenic Discharge Diagnosis: Lumbar spinal stenosis with neurogenic claudication Activity: As commented below Non-emergency contact: Primary Care Provider Call non-emergency contact if: you have any medication questions Follow-up/Referrals: Preston Green MD [Primary Care Provider] - Diet: Regular Addtl Attending Provider Instructions: ACTIVITY RECOMMENDATIONS: SELF CARE INSTRUCTIONS AFTER THORACIC/LUMBAR FUSIONS 1. You may walk to your tolerance. It is good exercise for your legs and back. Expect some back and intermittent leg aches and pains. 2. You may perform "counter-top" level activities (make a sandwich, cheri with a project, etc.). 3. No bending or lifting of more than 10 pounds or back twisting of any nature (roll like a log when turning in bed). 4. You may ride in a car for 20-30 minutes at a time. No driving until after your first visit with your doctor. 5. Frequent changes of position and restricting sitting to 30 minutes at a time will help limit the amount of back spasms and stiffness you may experience. 6. You may discontinue the use of ambulatory aids (cane, crutches, etc.) once your strength and confidence allow. 7. You may assessment clinician the shower and let water strike your incision when you arrive home at least once daily. Do not take a tub bath, sit in a hot tub or go into a swimming pool until after your first recheck in the office. SPECIAL CARE INSTRUCTIONS: VERY IMPORTANT TO READ AND REVIEW A. Your surgical incision has been closed with a cosmetic suture under the skin that will dissolve in about 6 weeks. In 14 days, you can use a pair of clean scissors and cut the suture that is left outside of the skin at the ends of your incision. 1. The small skin tapes can be removed 7 days after surgery if they have not fallen off by that point. 2. You may keep the wound open to air as much as possible to promote healing after post-op day number 5 unless told otherwise by your doctor. 3. If you think the wound looks like it is becoming infected (redness or worsening drainage) and/or you are experiencing fever, chill or worsening back pain and muscle spasms, contact the office so that we may evaluate you as soon as possible. B. Complications are uncommon, but please contact us if you have any signs or symptoms of: 1. wound infection (fever higher than 102.5 degrees F, redness, separation of wound, drainage, or increasing pain from the incision) 2. blood clots in legs (pain, swelling, redness and warmth in legs) 3. urinary tract infection (fever higher than 102.5 degrees F, burning upon urination or increased frequency of urination) 4. nerve problems (inability to walk on your toes or heels, numbness, loss of bowel or bladder control) 5. any other symptoms that concern you C. Please call the office at if you have any concerns or questions about your operation or recovery. D. No smoking! Smoking drastically decreases the chance of a solid fusion. E. Do not take any anti-inflammatory medications (Indocin, Advil, Motrin, Aspirin, Naprosyn, etc.) as these may inhibit the chance of a solid fusion. Tylenol is okay to take for pain. MANAGING PAIN AFTER SPINAL SURGERY 1. Narcotic medication is intended for short-term use and will be provided for surgical pain. Surgical pain usually lasts for a period of 4-6 weeks. Narcotic medication includes Percocet, Vicodin, Darvocet, Tylenol #3 or Lortab. 2. Longer-term pain is more appropriately treated with non-narcotic medication such as Tylenol ES. 3. Muscle spasm is not appropriately treated with narcotics. Muscle relaxers such as Soma, Flexeril or Skelaxin can be used along with Tylenol ES. 4. Remember that we all live with some "aches and pains". This is not unusual or uncommon after an injury or as we get older. a. Back pain is expected and may include muscle spasms for 4 to 6 weeks after surgery. The pain should gradually improve. If the pain worsens for no apparent reason, please contact the office. b. Intermittent leg pain may also be experienced and should not be concerned about unless it worsens for no apparent reason. If so, please contact the office. 5. We will provide appropriate medication within the normal guidelines of their prescribed use. We will also be very cautious and aware of potential abuse and extended duration of patients' medication needs. a. Pain medications are for your comfort and to assist with sleep and rest so that the tissue can heal. They are not provided in order to return to normal activity and should not be used through the day. To do so or worsening pain at night can result from ongoing tissue damage and development of tolerance to the prescribed medicine. 6. Please allow 2-3 days to process refills. Prescriptions will not be mailed but must be picked up at the office. FOLLOW UP VISIT: Keep your scheduled follow-up appointment. Any questions, please call the office at . Pending Studies at Discharge: No Stand-Alone Forms: My [facility] [employer], Smoking Cessation Medications and DC Order Prescriptions: New oxycodone 5 mg tablet 5 mg PO Q6H PRN (Reason: pain, severe) Qty: 30 0RF tramadol 50 mg tablet 50 mg PO Q6H PRN (Reason: pain, moderate) Qty: 30 0RF Continued tizanidine 4 mg tablet 4 mg PO ONCE PRN (Reason: muscle spasticity) Qty: 90 3RF metoprolol succinate 25 mg tablet extended release 24 hr 12.5 mg PO .QHS Qty: 45 3RF alendronate 70 mg tablet 70 mg PO WEEKLY Qty: 12 4RF Rx Instructions: A take weekly with large glass of plain water. Do not lie down for 30 minutes after taking it. Do not take any other medication or food for 30 minutes. gabapentin 300 mg capsule 300 mg PO TID Qty: 270 3RF nortriptyline 10 mg capsule 10 mg PO QPM Qty: 90 3RF omeprazole 20 mg capsule,delayed release(DR/EC) 20 mg PO QAM Qty: 90 3RF albuterol sulfate 90 mcg/actuation HFA aerosol inhaler 2 puff inhalation Q4H PRN (Reason: shortness of breath or wheezing) Qty: 18 5RF oxycodone-acetaminophen 5-325 mg tablet 2 tab PO Q6H PRN (Reason: pain) Qty: 100 0RF cetirizine [Zyrtec] 10 mg Tablet 10 mg PO QAM ferrous sulfate [iron] 325 mg (65 mg iron) Tablet 325 mg PO QAM montelukast 10 mg tablet 10 mg PO QPM losartan 100 mg tablet 100 mg PO QPM ezetimibe 10 mg tablet 10 mg PO QPM magnesium gluconate 27 mg magnesium (500 mg) tablet 27 mg PO QAM Discharge Orders: Discharge Order (Routine); Ordered 01/19/22 Ordered By: Bryant Ayala Admission Data Admit Date/Time: 01/17/22 12:46 Attending Provider: Bryant Ayala Admit Provider: Bryant Ayala Primary Care Provider: Preston Green Other Providers: Demarcus Duque ; Shon Thompson
--- NOTE | 2022-01-19 12:55 | Hospitalist Progress Note ---
Date of Service January 19, 2022 Assessment & Plan (1) Lumbar spinal stenosis: Plan: Patient underwent L3-5 decompression and fusion by Dr. Ayala on 01/17/2022 [address]TI[address] drain is in place patient has good distal sensation and strength postoperatively Patient has acute blood loss anemia postoperatively with hemoglobin dropped 2 g he is cardiovascularly stable and not in need of any transfusion at this point time (2) Osteoporosis: Plan: Patient instituted on Fosamax preoperatively (3) Thoracic outlet syndrome: Plan: Diagnosed because of cervical ribs in the patient's 50s. Patient typically takes gabapentin and tizanidine and nortriptyline scheduled to relieve pain from this (4) Hyperlipidemia: Plan: Patient is on Ezetimibe continues (5) Benign essential hypertension: Plan: Metoprolol succinate 25mg PO HS continue Resume losartan at half dose tonight. If no dizziness can resume full dose tomorrow as discussed with the patient Admission and Anticipated Discharge Date Admission Date: January 17, 2022 Subjective No dizziness or lightheadedness. Contact by RN regarding advice for losartan. Recommend keeping with previous plan and losartan 50mg PO toinight. Can resume 100mg HS tomorrow as long as no dizziness or lightheadedness. If he dose get dizzy tomorrow he should not take losartan and call his primary care provider. Review of Systems Review of Systems: All systems reviewed & are unremarkable except as noted in Subjective Physical Exam Constitutional: WD/WN, vitals as above Respiratory: normal respiratory effort Psychiatric: A+Ox3, euthymic affect Results & Data Results & Data ([facility]) Vital Signs (Past 12 Hours) Vital Signs Temp Pulse Resp BP BP Pulse Ox O2 Del Method 01/19/22 09:13 65 108/64 01/19/22 08:12 36.5 C 61 18 114/69 99 Room Air PG Care Time/CCT Total # of Minutes Spent Total Time Spent with Patient: Total time spent is greater than 50% in coordination of care (as documented) at patient's floor/unit and/or counseling patient: Coding Level of Care Code 68975 Subseq Hosp Care Lvl 1 Diagnoses Lumbar spinal stenosis M48.061 Osteoporosis M81.0 Thoracic outlet syndrome G54.0 Hyperlipidemia E78.5 Benign essential hypertension I10
[2022-01-19] MEDS ORDERED: LOSARTAN POTASSIUM 50 MG TAB PO SCH ×2 (21:00)
== END 2022-01-19 12:55 | disposition home or self-care (01) | DRG 454 ==
LOC: ASU 08:38 → PACUINP 12:46 → 3E 15:29

== ENCOUNTER 2022-01-23 09:27 | Observation (INO) ==
[2022-01-23] MEDS ORDERED: SODIUM CHLORIDE 0.9% 1000ML 1,000 ML IV ONE (10:13)
[2022-01-23] MEDS ORDERED: MoRPHine SULFATE 2 MG/ML CARP IV STA (11:09)
[2022-01-23] MEDS ORDERED: FAMOTIDINE 20MG IV PUSH 20 MG/5 ML SYR IV STA (11:09)
[2022-01-23] MEDS ORDERED: ONDANSETRON INJ 2 MG/ML 2 ML VIAL IV STA (11:09)
[2022-01-23 11:25] LABS: Basophils # (auto) 0.02 K/uL (0-0.2); Basophils % (auto) 0.1 %; Eosinophils # (auto) 0.03 K/uL (0-0.50); Eosinophils % (auto) 0.2 %; Hematocrit (blood only) 32.9 % (40.1-51.0); Immature Granulocytes # (auto) 0.09 K/uL (0.00-0.02); Immature Granulocytes % (auto) 0.6 %; Lymphocytes # (auto) 1.71 K/uL (1.2-3.4); Lymphocytes % (auto) 11.5 %; Mean Corpuscular Hemoglobin 30.3 pg (25.0-34.0); Mean Corpuscular Hgb Conc 33.4 g/dL (32.0-36.0); Mean Corpuscular Volume 90.6 fL (80.0-100.0); Mean Platelet Volume 10.4 fL (9.4-12.4); Monocytes # (auto) 1.48 K/uL (0.24-0.82); Monocytes % (auto) 9.9 %; Neutrophils # (auto) 11.59 K/uL (1.4-6.5); Neutrophils % (auto) 77.7 %; Platelet Count 362 K/uL (130-400); RDW Coefficient of Variation 13.4 % (11.5-14.5); RDW Standard Deviation 44.3 fL (36.4-46.3); Red Blood Count 3.63 M/uL (4.63-6.08); White Blood Count 14.92 K/ul (4.8-10.8)
[2022-01-23 11:51] LABS: Alanine Aminotransferase 14 U/L (7-52); Albumin Globulin Ratio 1.3 (0.9-2); Albumin Level 3.7 gm/dl (3.4-5.0); Alkaline Phosphatase 49 U/L (34-104); Anion Gap 7 (3-11); Aspartate Aminotransferase 14 U/L (13-39); BUN Creatinine Ratio 28.2 (10-20); Bilirubin Direct 0.1 mg/dl (0-0.2); Bilirubin,Total 0.8 mg/dl (0.2-1.0); Blood Urea Nitrogen 29 mg/dl (6-23); Calcium 8.2 mg/dl (8.5-10.1); Carbon Dioxide 32 mmol/L (21-32); Chloride 97 mmol/L (98-107); Est GFR (African American) 81.4 ml/min; Est GFR (Non-African American) 70.2 ml/min; Globulin 2.8 gm/dl (2.5-4.0); Glucose 103 mg/dl (70-99(Fasting)); Lipase 3 U/L (11-82); Magnesium 2.3 mg/dl (1.7-2.4); Phosphorus 2.8 mg/dl (2.5-4.9); Potassium 3.6 mmol/L (3.5-5.1); Sodium 136 mmol/L (136-145); Total Protein 6.5 gm/dl (6.0-8.3)
[2022-01-23 12:26] LABS: Influenza A virus by PCR Negative (Neg); Influenza B virus by PCR Negative (Neg); RSV by PCR Negative (Neg); SARS CoV2 RNA(COVID-19) Ceph NEGATIVE (Negative)
[2022-01-23] MEDS ORDERED: OPTIRAY 350 100ml IV ONE (14:03)
--- NOTE | 2022-01-23 14:24 | CT Scan Report ---
HEAD CT NONCONTRAST CT DOSE: 1034.12 mGy.cm HISTORY: confusion TECHNIQUE: Multiaxial CT images of the head were performed without the use of intravenous contrast. A utomated exposure control was utilized for this study. A dose lowering technique was utilized adheri ng to the principles of ALARA. Comparison: None. Findings: The paranasal sinuses and mastoid air cells are clear. The calvarium and skull base are int act. The ventricles and sulci are within normal limits. There is no mass, hematoma, midline shift, or acute infarct. Impression: No acute intracranial abnormality. ACT 112: Negative or not required by law. Electronically signed by: Russell Mao M.D. 01/23/2022 2:22 PM
--- NOTE | 2022-01-23 14:28 | CT Scan Report ---
CT SCAN OF THE ABDOMEN AND PELVIS WITH IV CONTRAST CLINICAL HISTORY: Generalized abdominal pain. Diarrhea. Recent lumbar spine surgery. COMPARISON STUDY: Abdominal CT dated 11/05/2021. TECHNIQUE: Following the IV administration of 94 cc of Optiray 350, CT scan of the abdomen and pelvi s is performed from the lung bases to the proximal femora. Images are reviewed in the axial, sagittal , and coronal planes. IV contrast was administered without complication. A dose lowering technique wa s utilized adhering to the principles of ALARA. The examination is degraded by motion artifact. FINDINGS: Lung bases: The heart is enlarged and without pericardial effusion. The lung bases are grossly clear. There is a small hiatal hernia. Liver: The contrast-enhanced liver is normal in size, contour, and attenuation. There is no intrahepa tic biliary ductal dilatation. The hepatic veins and portal veins are patent. Gallbladder: Unremarkable. Spleen: Normal in size and attenuation. Pancreas: Unremarkable. Adrenal glands: Unremarkable. Kidneys: The contrast enhanced kidneys demonstrate mild cortical atrophy and are without hydronephros is. The kidneys enhance symmetrically. Abdominal vasculature: The abdominal aorta is normal in course and caliber noting mild to moderate at herosclerotic calcification. Bowel: There is significant wall thickening and edema seen involving the colon. This extends from the cecum to the mid descending colon. There is associated pericolonic inflammation. Liquid stool is not ed in the right colon. There is moderate colonic diverticulosis without CT evidence of acute divertic ulitis. There is no evidence of bowel obstruction. The appendix is normal as visualized Peritoneum: There is a small volume of perihepatic and pelvic ascites. No intraperitoneal free air is seen. Lymphadenopathy: None. Pelvic viscera: The prostate gland is mildly enlarged and heterogeneous. The bladder wall appears thi ckened/trabeculated indicating chronic outlet obstruction. Skeletal structures: The skeletal structures are osteopenic. There is lumbosacral spondylosis with po stsurgical change from L3-L5 spinal fusion. Postsurgical change and edema is seen within the posterio r paraspinous soft tissues at the surgical levels. No lytic or blastic lesions are seen. IMPRESSION: 1. There is evidence of a nonspecific colitis as above. Clinical correlation will be required. 2. Small volume of abdominopelvic ascites. 3. No intraperitoneal free air is seen. 4. Post surgical change of the lumbar spine as above. 5. Additional findings as above. ACT 112: Negative or not required by law. Electronically signed by: Preston Nagy M.D. 01/23/2022 2:27 PM
[2022-01-23 15:31] LABS: Appearance Urine Clear (Clear); Bacteria Urine Automated Negative (Negative); Bilirubin Urine Negative (Negative); Blood Urine 1+ (Negative); Color Urine Yellow; Epithelial Cell Urine Auto 20-30 /lpf (0-5); Glucose Urine UA Negative (Negative); Ketones Urine Negative (Negative); Leukocyte Esterase Urine Negative (Negative); Nitrite Urine Negative (Negative); Protein Urine Negative (Negative); Specific Gravity Urine 1.014 (1.000-1.030); Urobilinogen Urine Negative (Negative)
--- NOTE | 2022-01-23 16:05 | History & Physical Report ---
Date of Service January 23, 2022 Assessment & Plan (1) Diarrhea: Plan: Weakness, diarrhea, leukocytosis.? C. difficile 1 history of C. difficile with prolonged Vanco treatment,? Recurrence in the setting of preoperative antibiotics Patient globally weak, with diarrhea, and unable to perform activities of daily living at home since returning from surgery Denies focal weakness Leukocytosis is 14.92 Change in diarrhea character to completely liquid in the last 2 days - CT-A/P: 1. There is evidence of a nonspecific colitis as above. Clinical correlation will be required.2. Small volume of abdominopelvic ascites.3. No intraperitoneal free air is seen.4. Post surgical change of the lumbar spine as above.5. Additional findings as above. Continue C. difficile precautions. Patient reports he previously was C. difficile gene and toxin negative after having prolonged disease while gene positive and was seen by Karin PACKER. On admission patient is now C. 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 difficile with risk factors including surgery and perioperative antibiotic use will treat with vancomycin 125 mg 4 times daily No chest pain/chest pressure/fever/chills. Leg Edemam, hx CHF thought 2/2 NSAID use versus venous stasis with postsurgical reduced ambulation -Patient reports he had a transient history of CHF thought to be 2/2 NSAID use, last echo was with normal ejection fraction and has not had ongoing problems with heart failure, does not require Lasix - Hx venous stasis with compression stockings Denies orthopnea, does have some difficulty laying flat after his surgery Trace ankle edema near/similar to baseline. Patient walking less due to fatigue and postsurgically SPO2 goal greater than 90% CXR pending Benign essential hypertension Takes losartan 100 mg, Metoprolol 12.5 mg nightly, continue Lumbar stenosis s/p spinal fusion and decompression with Dr. Ayala 01/2022 Patient with some discomfort and pain in his low back at surgical site, improved with medications Continue multimodal pain control, Tylenol first-line, tramadol second line, convert oxycodone to hydromorphone temporarily for breakthrough Surgical site intact, healing well, without erythema, warmth, fluctuance Neurovascularly intact in lower extremities Mild intermittent asthma No wheezing Albuterol as needed Hyperlipidemia Well-controlled with Zetia 10 mg daily. Continue Statin intolerant with myalgias in the past Thoracic OUtlet Syndrome - FOllows Dr. Galindo - Takes gabapentin, nortyptaline, tizanidine and doing well No acute change in management DVT prophylaxis: SCDs Diet: Regular Disposition: Medical/surgical CODE STATUS: Full code, discussed with (2) Lumbar spinal stenosis: (3) Hx of congestive heart failure: (4) Hypomagnesemia: (5) GERD without esophagitis: (6) Asthma, mild intermittent: (7) Thoracic outlet syndrome: (8) Benign essential hypertension: History of Present Illness Primary Care Provider: Preston Green MD Chema Milner is a 76-year-old who p/w generalized weakness and diarrhea. Dc 01/19 after spinal fusion Underwent L3-L5 decompression and fusion 03/20/[address] Ayala, was doing well postoperatively but had some constipation. Was put on MiraLAX at that time. Patient does have history of C. difficile in the past. Had not been on extended antibiotics. Had surgery last Sunday. Reports he was doing so well morning was OK to go home after lunch. Sunday felt well, Sunday developed some constipation. He had been taking miralax daily and if he had not gone by Sunday to take 1x dulcolax tablet. Bowels did not start moving until Sunday afternoon. After his BMs he became extremely nauseus and was prescribed zofran. Stopped oxycodone and switched to tramadol. Took tramadol sat evening with zofran. Sunday morning was doing 'ok' but was not eating/drinking as well as he normally would. Took tramadol at 1pm. That afternoon 'rapidly went downhill' and called Dr. Lara office. Severe nausea, diarrhea all night. Was told to come to the ER if not doing well by Sunday, this morning still nauseus and not eating/drinking well and came for evaluation. Not nauseus at time of hospital admission Having BMs hourly. BMs are 'pure liquid now'. Having crampy abdominal pain with improves intermittently with BMs. No fevers, chills, or sweats. Is a little cold but no chills No Chest pain, chest pressure, or shortness of breath Hx of diverticulitis and past C. diff. Had c. diff after abx for diverticulitis. 4 month sof severe symptom, almost had surgery at [facility] then was found to have c diff but improved enough to avoid colectomy. Was ~4 years ago. No abx other than periop tx Medical History: Reviewed Medications: Reviewed. Took no medications this morning Surgical History: Reviewed Allergies: Reviewed Social History: No tobacco ro etoh use. FOrmer smoker socially, few months at most of intermittent use. Code Status: Full Code. Allergies Allergy/AdvReac Type Severity Reaction Status Date / Time meloxicam AdvReac Unknown CHF Verified 01/23/22 16:06 Home Medications Medication Instructions Recorded Confirmed Type alendronate 70 mg tablet 70 mg PO WEEKLY #12 tabs 12/09/21 01/17/22 Rx cetirizine 10 mg tablet (Zyrtec) 10 mg PO QAM 12/13/21 01/17/22 History ezetimibe 10 mg tablet 10 mg PO QPM 12/13/21 01/17/22 History ferrous sulfate 325 mg (65 mg 325 mg PO QAM 12/13/21 01/17/22 History iron) tablet (iron) losartan 100 mg tablet 100 mg PO QPM 12/13/21 01/17/22 History magnesium gluconate 27 mg 27 mg PO QAM 12/13/21 01/17/22 History magnesium (500 mg) tablet montelukast 10 mg tablet 10 mg PO QPM 12/13/21 01/17/22 History albuterol sulfate 90 mcg/actuation 2 puff inhalation Q4H PRN 12/30/21 01/17/22 Rx aerosol inhaler shortness of breath or wheezing #18 grams oxycodone-acetaminophen 5 mg-325 2 tab PO Q6H PRN pain #100 tabs 12/30/21 01/17/22 Rx mg tablet gabapentin 300 mg capsule 300 mg PO TID #270 caps 01/10/22 01/17/22 Rx nortriptyline 10 mg capsule 10 mg PO QPM #90 caps 01/10/22 01/17/22 Rx omeprazole 20 mg capsule,delayed 20 mg PO QAM #90 caps 01/10/22 01/17/22 Rx release oxycodone 5 mg tablet 5 mg PO Q6H PRN pain, severe #30 01/18/22 Rx tabs tramadol 50 mg tablet 50 mg PO Q6H PRN pain, moderate 01/18/22 Rx #30 tabs metoprolol succinate 25 mg 12.5 mg PO HS 01/23/22 01/23/22 History tablet,extended release 24 hr ondansetron HCl 4 mg tablet 4 mg PO Q8 PRN Nausea And Vomiting 01/23/22 01/23/22 History tizanidine 4 mg tablet 4 mg PO HS PRN muscle spasticity 01/23/22 01/23/22 History Past Med/Surg History Medical History Asthma Stable Benign essential hypertension Cervicalgia of [id number] region GERD (gastroesophageal reflux disease) History of CHF (congestive heart failure) 10+ years ago felt 2/2 meloxicam reaction, previously evaluated by cardio, echo 05/2020 History of diverticulitis 5+ years ago [place] (hard of hearing) Hyperlipidemia Lumbar radiculopathy Lumbar spinal stenosis Osteopenia Osteoporosis Syncopal episodes 1+ years ago r/t hypotension - no issues since BP meds adjusted Thoracic outlet syndrome associated with cervical rib Surgical History Cervical vertebral fusion limited ROM side to side H/O arthroscopic knee surgery Rt History of cataract surgery History of colonoscopy with polypectomy History of prostate biopsy benign History of tooth extraction History of umbilical hernia repair Family History Mother Cervical cancer Other Colonic polyp Colorectal cancer No family history of adverse response to anesthesia Social History Smoking Status: Never smoker Age Started Using Tobacco: 20; Age Quit Using Tobacco: 22; Second Hand Exposure: Yes (hx as a child); Hx Alcohol Use: Yes Hx Substance Use: Yes Preferred Language: Qatari Communication Ability: Effective Visual Impairment: No Limitations Hearing Ability: Normal Volunteer Patient Representative Required: No Beliefs That Will Affect Care: None marital status: Current Living Situation: Spouse current occupational status: retired Feels Safe at Home: Yes Dental Care, Regularly: Yes Physical Activity Frequency: Daily Seatbelt Use: always Assistive Devices: None Review of Systems Review of Systems: 10 point review systems except as noted in HPI Physical Exam Physical Exam: General: A&Ox3. NAD. Cooperative. HEENT: Atraumatic, normocephalic. Vision/hearing grossly intact Pulm: CTAB A&P. -wheezes, -rales, -rhonchi. Symmetrical chest rise. No increase in work of breathing. No respiratory distress. Cardiac: RRR, -mrg. Radial pulses intact and symmetrical. Abdominal: Diffusely mildly tender in right and left lower quadrant to palpation without rebound tenderness or guarding. No epigastric tenderness. Bowel sounds increased Back: Lumbar postsurgical incisions intact with no erythema, purulence, fluctuance. Well-healing, no dehiscence. Extremities: Warm, dry. Sensation of soft touch intact in hands and feet without asymmetry, ankle dorsiflexion/plantarflexion and water tanker driver strength intact bilaterally 5/5 Results & Data Results & Data ([facility]) Vital Signs (Past 12 Hours) Vital Signs Temp Pulse Pulse Resp BP BP Pulse Ox 01/23/22 11:30 70 14 113/78 96 01/23/22 10:12 98 01/23/22 09:45 36.6 C 73 16 118/64 100 O2 Del Method 01/23/22 11:30 Room Air 01/23/22 10:12 01/23/22 09:45 Room Air PG Care Time/CCT Total # of Minutes Spent Total Time Spent with Patient: Total time spent is greater than 50% in coordination of care (as documented) at patient's floor/unit and/or counseling patient: Coding Level of Care Code INT OBSERVATION CARE 50M LVL 2 Diagnoses Diarrhea R19.7 Lumbar spinal stenosis M48.061 Hx of congestive heart failure Z86.79 Hypomagnesemia E83.42 GERD without esophagitis K21.9 Asthma, mild intermittent J45.20 Thoracic outlet syndrome G54.0 Benign essential hypertension I10
[2022-01-23 16:39] LABS: Cdiff Antigen Positive; Cdiff Toxin A+B Negative Cdiff Toxin (Negative)
[2022-01-23 16:46] LABS: Adenovirus F 40/41 PCR Not Detected (NotDetected); Astrovirus PCR Not Detected (NotDetected); Campylobacter PCR Not Detected (NotDetected); Cryptosporidium PCR Not Detected (NotDetected); Cyclospora cayetanensis PCR Not Detected (NotDetected); Entamoeba histolytica PCR Not Detected (NotDetected); Enteropathogenic E.coli (EPEC) Not Detected (NotDetected); Enterotoxigenic E.coli (ETEC) Not Detected (NotDetected); Giardia lamblia PCR Not Detected (NotDetected); Norovirus GI/GII PCR Not Detected (NotDetected); Plesiomonas shigelloides PCR Not Detected (NotDetected); Rotavirus A PCR Not Detected (NotDetected); Salmonella PCR Not Detected (NotDetected); Sapovirus PCR Not Detected (NotDetected); Shiga-like Toxin E.coli (STEC) Not Detected (NotDetected); Shigella/Enteroinvasive E.coli Not Detected (NotDetected); Vibrio cholerae PCR Not Detected (NotDetected); Vibrio species PCR Not Detected (NotDetected); Yersinia enterocolitica PCR Not Detected (NotDetected)
[2022-01-23 16:51] LABS: Enteroaggregative E.coli(EAEC) DETECTED (NotDetected)
--- NOTE | 2022-01-23 16:52 | Emergency Department Note ---
Impression & Plan Colitis, Nausea, Dehydration, Generalized weakness, Leukocytosis ED Provider Note NAME: PARVEZ HAMMOND JR AGE: 76 SEX: M ARRIVES VIA: Walk-In INFORMANT: Patient ED PROVIDER(S): Patricio Jiménez MD CHIEF COMPLAINT: Weakness, diarrhea, referred. PLAN: Disposition: Home MEDICAL DECISION MAKING: The patient is a pleasant 76-year-old gentleman with a past medical history of lumbar spinal stenosis status post decompression, hypertension, GERD, prior h/o C-diff who presents to the emergency department, by family for evaluation of ongoing diarrhea and generalized weakness in the setting of having recent spine surgery on 01/17 where he subsequently developed constipation in the hospital and was treated with MiraLAX. He was additionally instructed to stop his oxycodone and begin tramadol instead. His diarrhea has persisted and has been too numerou s to count. He also has had nausea and decreased oral intake. They deny any fevers, chills, cough, congestion, urinary symptoms. On arrival the patient is fatigued appearing but no acute distress, afebrile stable vital signs. He appears clinically dry. He has mild lower abdominal discomfort without discrete tenderness. His lumbar incision site is clean dry and intact without evidence of infection. WBC 14.9K nonspecific. H/H similar to prior range values. Platelets within normal limits. Chemistry without metabolic acidosis. BUN 29, consistent with patient's clinically dry appearance. Electrolytes and LFTs unremarkable. Lipase is not elevated. UA without convincing evidence of infection. COVID-19, influenza and RSV PCR's were negative. Stool studies performed. The patient was positive for C. difficile gene however negative for C. difficile toxin. CT of the abdomen pelvis was performed and demonstrates nonspecific colitis. CT of the head was also performed and was unremarkable. This was performed due to family's report of concern for transient confusion when he was in the emergency department though may have been when he was sleeping. Findings reviewed with the patient and his family. Given ongoing weakness with persistence of frequent stools in the setting of colitis they do feel that he would benefit from being admitted. Case was discussed with Dr. Nichols, [facility] [place], who will evaluate the patient for admission. Further management per admitting team. Triage Nursing notes reviewed and agree them. Prior medical records reviewed Vital Signs: reviewed Differential diagnosis: Appendicitis, testicular torsion, infections, diverticulitis, UTI, obstruction, mesenteric ischemia, aortic pathology, inflammatory bowel disease, renal colic, PUD, pancreatitis, biliary pathology, hernia, volvulus, constipation, as well as other pathologies. ER treatment provided: See below. Diagnostics interpreted by me: Cardiac Monitoring: An order for continuous cardiac monitoring was placed and demonstrated normal sinus rhythm, 70 bpm, no ectopy. Laboratory studies: See below Imaging studies: See below Consultation(s): Dr. Kent, [facility] [place] HPI: The patient is a pleasant 76-year-old gentleman with a past medical history of lumbar spinal stenosis status post decompression, hypertension, GERD, prior h/o C-diff who presents to the emergency department, by family for evaluation of ongoing diarrhea and generalized weakness in the setting of having recent spine surgery on 01/17 where he subsequently developed constipation in the hospital and was treated with MiraLAX. He was additionally instructed to stop his oxycodone and begin tramadol instead. His diarrhea has persisted and has been too nu merous to count. He also has had nausea and decreased oral intake. They deny any fevers, chills, cough, congestion, urinary symptoms. ROS: See above HPI for pertinent positives & negatives. A total of 10 systems reviewed and were otherwise negative. VITALS:See Below PHYSICAL EXAMINATION: GENERAL: Awake, alert, fatigued-appearing, in no distress HENT: Normocephalic, atraumatic. Oropharynx with dry mucous membranes and otherwise unremarkable. EYES: Normal conjunctiva. Sclera non-icteric. NECK: Supple. No nuchal rigidity. FROM. No JVD. RESPIRATORY: Clear to auscultation. CARDIAC: Regular rate, normal rhythm. Extremities warm and well perfused. Pulses equal. ABDOMEN: Soft, non-distended. Mild lower abdominal discomfort without discrete tenderness to palpation. No rebound or guarding. No masses. RECTAL: Deferred. MUSCULOSKELETAL: Chest examination reveals no tenderness. Lumbar incision site is clean dry and intact without evidence of infection. There is no CVA tenderness to palpation. No joint edema. LOWER EXTREMITIES: Calves are equal size bilaterally and non-tender. Scant BLE edema. No discoloration. NEURO: Normal sensorium. No sensory or motor deficits noted. SKIN: No rash or jaundice noted. Patricio Jiménez MD Past Med/Surg History Medical History Asthma Stable Benign essential hypertension Cervicalgia of hhqonjdp-mpvjppi-vdqve region GERD (gastroesophageal reflux disease) History of CHF (congestive heart failure) 10+ years ago felt 2/2 meloxicam reaction, previously evaluated by cardio, echo 05/2020 History of diverticulitis 5+ years ago [place] (hard of hearing) Hyperlipidemia Lumbar radiculopathy Lumbar spinal stenosis Osteopenia Osteoporosis Syncopal episodes 1+ years ago r/t hypotension - no issues since BP meds adjusted Thoracic outlet syndrome associated with cervical rib Surgical History Cervical vertebral fusion limited ROM side to side H/O arthroscopic knee surgery Rt History of cataract surgery History of colonoscopy with polypectomy History of prostate biopsy benign History of tooth extraction History of umbilical hernia repair Family History Mother Cervical cancer Other Colonic polyp Colorectal cancer No family history of adverse response to anesthesia Social History Smoking Status: Never smoker Age Started Using Tobacco: 20; Age Quit Using Tobacco: 22; Second Hand Exposure: Yes (hx as a child); Hx Alcohol Use: Yes Hx Substance Use: Yes Preferred Language: American Communication Ability: Effective Visual Impairment: No Limitations Hearing Ability: Normal Advanced Practice Nurse Required: No Beliefs That Will Affect Care: None marital status: Current Living Situation: Spouse current occupational status: retired Feels Safe at Home: Yes Dental Care, Regularly: Yes Physical Activity Frequency: Daily Seatbelt Use: always Assistive Devices: None Allergies Allergies Allergy/AdvReac Type Severity Reaction Status Date / Time meloxicam AdvReac Unknown CHF Verified 01/23/22 16:06 Home Meds Home Medications Medication Instructions Recorded Confirmed cetirizine 10 mg tablet (Zyrtec) 10 mg PO QAM 12/13/21 01/23/22 ezetimibe 10 mg tablet 10 mg PO QPM 12/13/21 01/23/22 ferrous sulfate 325 mg (65 mg 325 mg PO QAM 12/13/21 01/23/22 iron) tablet (iron) losartan 100 mg tablet 100 mg PO QPM 12/13/21 01/23/22 magnesium gluconate 27 mg 27 mg PO QAM 12/13/21 01/23/22 magnesium (500 mg) tablet montelukast 10 mg tablet 10 mg PO QPM 12/13/21 01/23/22 metoprolol succinate 25 mg 12.5 mg PO HS 01/23/22 01/23/22 tablet,extended release 24 hr ondansetron HCl 4 mg tablet 4 mg PO Q8 PRN Nausea And Vomiting 01/23/22 01/23/22 tizanidine 4 mg tablet 4 mg PO HS PRN muscle spasticity 01/23/22 01/23/22 Previous Rx's Medication Instructions Recorded alendronate 70 mg tablet 70 mg PO WEEKLY #12 tabs 12/09/21 albuterol sulfate 90 mcg/actuation 2 puff inhalation Q4H PRN 12/30/21 aerosol inhaler shortness of breath or wheezing #18 grams oxycodone-acetaminophen 5 mg-325 2 tab PO Q6H PRN pain #100 tabs 12/30/21 mg tablet gabapentin 300 mg capsule 300 mg PO TID #270 caps 01/10/22 nortriptyline 10 mg capsule 10 mg PO QPM #90 caps 01/10/22 omeprazole 20 mg capsule,delayed 20 mg PO QAM #90 caps 01/10/22 release oxycodone 5 mg tablet 5 mg PO Q6H PRN pain, severe #30 01/18/22 tabs tramadol 50 mg tablet 50 mg PO Q6H PRN pain, moderate 01/18/22 #30 tabs Results & Data (ED) Vital Signs Vital Signs - 24 hr 01/23/22 09:45 01/23/22 10:12 01/23/22 11:30 Temperature 36.6 C Temperature Source Temporal Artery Scan Pulse Rate 73 Pulse Rate [Apical] 70 Respiratory Rate 16 14 Respiratory Effort / Characteristics Non-Labored Spontaneous Non-Labored Spontaneous Respiratory Depth Normal Normal Respiratory Pattern Regular Blood Pressure 118/64 Blood Pressure [Left Arm] 113/78 Blood Pressure Mean 82 Blood Pressure Mean [Left Arm] 89 Blood Pressure Position Sitting Pulse Oximetry 100 98 96 Oxygen Delivery Method Room Air Room Air Sepsis Recent Fever Within 48 Hours No Sepsis New/Unexplained Change in Mental Status No Sepsis Action Taken by Nursing No Action Required Laboratory Data Attestation: I reviewed the patient's lab results. Result diagrams: 01/23/22 10:50 01/23/22 10:50 Lab Results 01/23/22 01/23/22 01/23/22 Range/Units 10:50 10:50 10:55 WBC 14.92 H (4.8-10.8) K/ul RBC 3.63 L (4.63-6.08) M/uL Hgb 11.0 L (14.0-18.0) g/dl Hct 32.9 L (40.1-51.0) % MCV 90.6 (80.0-100.0) fL MCH 30.3 (25.0-34.0) pg MCHC 33.4 (32.0-36.0) g/dL RDW Std Deviation 44.3 (36.4-46.3) fL RDW Coeff of Yu 13.4 (11.5-14.5) % Plt Count 362 (130-400) K/uL MPV 10.4 (9.4-12.4) fL Immature Gran % (Auto) 0.6 % Neut % (Auto) 77.7 % Lymph % (Auto) 11.5 % [place] % (Auto) 9.9 % Eos % (Auto) 0.2 % Baso % (Auto) 0.1 % Neut # (Auto) 11.59 H (1.4-6.5) K/uL Lymph # (Auto) 1.71 (1.2-3.4) K/uL [place] # (Auto) 1.48 H (0.24-0.82) K/uL Eos # (Auto) 0.03 (0-0.50) K/uL Baso # (Auto) 0.02 (0-0.2) K/uL Immature Gran # (Auto) 0.09 H (0.00-0.02) K/uL Sodium 136 (136-145) mmol/L Potassium 3.6 (3.5-5.1) mmol/L Chloride 97 L (98-107) mmol/L Carbon Dioxide 32 (21-32) mmol/L Anion Gap 7 (3-11) BUN 29 H (6-23) mg/dl Creatinine 1.03 (0.6-1.4) mg/dl Est Cr Clr Drug Dosing Not Reportable Est GFR ( Amer) 81.4 ml/min Est GFR (Non-Af Amer) 70.2 ml/min BUN/Creatinine Ratio 28.2 H (10-20) Glucose 103 H (70-99(Fasting)) mg/dl Calcium 8.2 L (8.5-10.1) mg/dl Phosphorus 2.8 (2.5-4.9) mg/dl Magnesium 2.3 (1.7-2.4) mg/dl Total Bilirubin 0.8 (0.2-1.0) mg/dl Direct Bilirubin 0.1 (0-0.2) mg/dl AST 14 (13-39) U/L ALT 14 (7-52) U/L Alkaline Phosphatase 49 (34-104) U/L Total Protein 6.5 (6.0-8.3) gm/dl Albumin 3.7 (3.4-5.0) gm/dl Globulin 2.8 (2.5-4.0) gm/dl Albumin/Globulin Ratio 1.3 (0.9-2) Lipase 3 L (11-82) U/L Urine Color Urine Appearance (Clear) Urine pH (4.5-7.5) Ur Specific [place] (1.000-1.030) Urine Protein (Negative) Urine Glucose (UA) (Negative) Urine Ketones (Negative) Urine Blood (Negative) Urine Nitrite (Negative) Urine Bilirubin (Negative) Urine Urobilinogen (Negative) Ur Leukocyte Esterase (Negative) Urine WBC (Auto) (0-5) /hpf Urine RBC (Auto) (0-4) /hpf U Hyaline Cast (Auto) (0-5) /lpf U Epithel Cells (Auto) (0-5) /lpf Urine Bacteria (Auto) (Negative) Stl C. cayetanensis PCR (NotDetected) Stool Rotavirus A PCR (NotDetected) Stl Adenov F 40/41 PCR (NotDetected) Stool Astrovirus (PCR) (NotDetected) Stool Campylobacter PCR (NotDetected) Stl C. diff Tox B Gene (Neg) Stl C.difficile Tox A&B (Negative) Stool Cryptosporidium PCR (NotDetected) Stl E.coli Shiga Tox PCR (NotDetected) Stl Enterotoxigenic E PCR (NotDetected) Stool EPEC (PCR) (NotDetected) Stool EAEC (PCR) (NotDetected) Stl E. histolytica PCR (NotDetected) Stool Giardia Lamblia PCR (NotDetected) Stool Salmonella PCR (NotDetected) Stool Sapovirus (PCR) (NotDetected) Stl P. shigelloides PCR (NotDetected) Stl Shigella/EIEC PCR (NotDetected) St Y.enterocolitica PCR (NotDetected) Stool Vibrio (PCR) (NotDetected) Stl Vibrio cholerae PCR (NotDetected) Stl Norovirus GI/GII PCR (NotDetected) SARS-CoV-2 (PCR) NEGATIVE (Negative) Influenza Type A (PCR) Negative (Neg) Influenza Type B (PCR) Negative (Neg) RSV (RT-PCR) Negative (Neg) 01/23/22 01/23/22 01/23/22 Range/Units 15:00 15:02 15:02 WBC (4.8-10.8) K/ul RBC (4.63-6.08) M/uL Hgb (14.0-18.0) g/dl Hct (40.1-51.0) % MCV (80.0-100.0) fL MCH (25.0-34.0) pg MCHC (32.0-36.0) g/dL RDW Std Deviation (36.4-46.3) fL RDW Coeff of Yu (11.5-14.5) % Plt Count (130-400) K/uL MPV (9.4-12.4) fL Immature Gran % (Auto) % Neut % (Auto) % Lymph % (Auto) % [place] % (Auto) % Eos % (Auto) % Baso % (Auto) % Neut # (Auto) (1.4-6.5) K/uL Lymph # (Auto) (1.2-3.4) K/uL [place] # (Auto) (0.24-0.82) K/uL Eos # (Auto) (0-0.50) K/uL Baso # (Auto) (0-0.2) K/uL Immature Gran # (Auto) (0.00-0.02) K/uL Sodium (136-145) mmol/L Potassium (3.5-5.1) mmol/L Chloride (98-107) mmol/L Carbon Dioxide (21-32) mmol/L Anion Gap (3-11) BUN (6-23) mg/dl Creatinine (0.6-1.4) mg/dl Est Cr Clr Drug Dosing Est GFR ( Amer) ml/min Est GFR (Non-Af Amer) ml/min BUN/Creatinine Ratio (10-20) Glucose (70-99(Fasting)) mg/dl Calcium (8.5-10.1) mg/dl Phosphorus (2.5-4.9) mg/dl Magnesium (1.7-2.4) mg/dl Total Bilirubin (0.2-1.0) mg/dl Direct Bilirubin (0-0.2) mg/dl AST (13-39) U/L ALT (7-52) U/L Alkaline Phosphatase (34-104) U/L Total Protein (6.0-8.3) gm/dl Albumin (3.4-5.0) gm/dl Globulin (2.5-4.0) gm/dl Albumin/Globulin Ratio (0.9-2) Lipase (11-82) U/L Urine Color Yellow Urine Appearance Clear (Clear) Urine pH 6.0 (4.5-7.5) Ur Specific [place] 1.014 (1.000-1.030) Urine Protein Negative (Negative) Urine Glucose (UA) Negative (Negative) Urine Ketones Negative (Negative) Urine Blood 1+ H (Negative) Urine Nitrite Negative (Negative) Urine Bilirubin Negative (Negative) Urine Urobilinogen Negative (Negative) Ur Leukocyte Esterase Negative (Negative) Urine WBC (Auto) 1-5 (0-5) /hpf Urine RBC (Auto) 5-10 H (0-4) /hpf U Hyaline Cast (Auto) 1-5 (0-5) /lpf U Epithel Cells (Auto) 20-30 H (0-5) /lpf Urine Bacteria (Auto) Negative (Negative) Stl C. cayetanensis PCR Not Detected (NotDetected) Stool Rotavirus A PCR Not Detected (NotDetected) Stl Adenov F 40/41 PCR Not Detected (NotDetected) Stool Astrovirus (PCR) Not Detected (NotDetected) Stool Campylobacter PCR Not Detected (NotDetected) Stl C. diff Tox B Gene Positive Cdiff Gene H (Neg) Stl C.difficile Tox A&B Negative Cdiff Toxin (Negative) Stool Cryptosporidium PCR Not Detected (NotDetected) Stl E.coli Shiga Tox PCR Not Detected (NotDetected) Stl Enterotoxigenic E PCR Not Detected (NotDetected) Stool EPEC (PCR) Not Detected (NotDetected) Stool EAEC (PCR) DETECTED A* (NotDetected) Stl E. histolytica PCR Not Detected (NotDetected) Stool Giardia Lamblia PCR Not Detected (NotDetected) Stool Salmonella PCR Not Detected (NotDetected) Stool Sapovirus (PCR) Not Detected (NotDetected) Stl P. shigelloides PCR Not Detected (NotDetected) Stl Shigella/EIEC PCR Not Detected (NotDetected) St Y.enterocolitica PCR Not Detected (NotDetected) Stool Vibrio (PCR) Not Detected (NotDetected) Stl Vibrio cholerae PCR Not Detected (NotDetected) Stl Norovirus GI/GII PCR Not Detected (NotDetected) SARS-CoV-2 (PCR) (Negative) Influenza Type A (PCR) (Neg) Influenza Type B (PCR) (Neg) RSV (RT-PCR) (Neg) Administered Medications Discontinued Medications Sodium Chloride (Nss 1000ml) 1,000 mls @ 999 mls/hr IV .Q1H1M ONE Stop: 01/23/22 11:13 Last Infusion: 01/23/22 12:34 Dose: 0 mls/hr Documented By: JOSÉ MIGUEL Admin: 01/23/22 10:56 Dose: 999 mls/hr Documented By: JOSÉ MIGUEL Famotidine (Pepcid 20mg Iv Push) 20 mg in 5 mls @ 2.5 mls/min IV NOW STA Stop: 01/23/22 11:10 Last Admin: 01/23/22 11:56 Dose: 2.5 mls/min Documented By: JOSÉ MIGUEL Ioversol (Optiray 350 100ml) 94 ml IV ONCE ONE Stop: 01/23/22 14:04 Last Admin: 01/23/22 14:04 Dose: 94 ml Documented By: CONSTANTIN Morphine Sulfate (Morphine Sulfate 2 Mg/Ml [place]) 2 mg IV NOW STA Stop: 01/23/22 11:10 Last Admin: 01/23/22 11:56 Dose: 2 mg Documented By: JOSÉ MIGUEL Ondansetron HCl (Ondansetron Inj 2 Mg/Ml 2 Ml Vial) 4 mg IV NOW STA Stop: 01/23/22 11:10 Last Admin: 01/23/22 11:56 Dose: 4 mg Documented By: JOSÉ MIGUEL Imaging Data Radiologist's Impression: Abdomen/Pelvis CT 01/23/22 11:09 CT SCAN OF THE ABDOMEN AND PELVIS WITH IV CONTRAST CLINICAL HISTORY: Generalized abdominal pain. Diarrhea. Recent lumbar spine surgery. COMPARISON STUDY: Abdominal CT dated 11/05/2021. TECHNIQUE: Following the IV administration of 94 cc of Optiray 350, CT scan of the abdomen and pelvis is performed from the lung bases to the proximal femora. Images are reviewed in the axial, sagittal, and coronal planes. IV contrast was administered without complication. A dose lowering technique was utilized adhering to the principles of ALARA. The examination is degraded by motion artifact. FINDINGS: Lung bases: The heart is enlarged and without pericardial effusion. The lung bases are grossly clear. There is a small hiatal hernia. Liver: The contrast-enhanced liver is normal in size, contour, and attenuation. There is no intrahepatic biliary ductal dilatation. The hepatic veins and portal veins are patent. Gallbladder: Unremarkable. Spleen: Normal in size and attenuation. Pancreas: Unremarkable. Adrenal glands: Unremarkable. Kidneys: The contrast enhanced kidneys demonstrate mild cortical atrophy and are without hydronephrosis. The kidneys enhance symmetrically. Abdominal vasculature: The abdominal aorta is normal in course and caliber noting mild to moderate atherosclerotic calcification. Bowel: There is significant wall thickening and edema seen involving the colon. This extends from the cecum to the mid descending colon. There is associated pericolonic inflammation. Liquid stool is noted in the right colon. There is moderate colonic diverticulosis without CT evidence of acute diverticulitis. There is no evidence of bowel obstruction. The appendix is normal as visualized Peritoneum: There is a small volume of perihepatic and pelvic ascites. No intraperitoneal free air is seen. Lymphadenopathy: None. Pelvic viscera: The prostate gland is mildly enlarged and heterogeneous. The bladder wall appears thickened/trabeculated indicating chronic outlet obs truction. Skeletal structures: The skeletal structures are osteopenic. There is lumbosacral spondylosis with postsurgical change from L3-L5 spinal fusion. Postsurgical change and edema is seen within the posterior paraspinous soft tissues at the surgical levels. No lytic or blastic lesions are seen. IMPRESSION: 1. There is evidence of a nonspecific colitis as above. Clinical correlation will be required. 2. Small volume of abdominopelvic ascites. 3. No intraperitoneal free air is seen. 4. Post surgical change of the lumbar spine as above. 5. Additional findings as above. ACT 112: Negative or not required by law. Electronically signed by: Preston Nagy M.D. 01/23/2022 2:[address] 01/23/22 12:[address] DOSE: 1034.12 mGy.cm HISTORY: confusion TECHNIQUE: Multiaxial CT images of the head were performed without the use of intravenous contrast. Automated exposure control was utilized for this study. A dose lowering technique was utilized adhering to the principles of ALARA. Comparison: None. Findings: The paranasal sinuses and mastoid air cells are clear. The calvarium and skull base are intact. The ventricles and sulci are within normal limits. There is no mass, hematoma, midline shift, or acute infarct. Impression: No acute intracranial abnormality. ACT 112: Negative or not required by law. Electronically signed by: Russell Mao M.D. 01/23/2022 2:22 PM Discharge Plan Visit Data Chief Complaint: Diarrhea Stated Complaint: NAUSEA, DIARRHEA ED Provider: Patricio Jiménez Discharge Problem: Colitis, Nausea, Dehydration, Generalized weakness, Leukocytosis Forms Stand Alone Forms: [facility] Prescriptions Prescriptions: No Action alendronate 70 mg tablet 70 mg PO WEEKLY Qty: 12 4RF Rx Instructions: A take weekly with large glass of plain water. Do not lie down for 30 minutes after taking it. Do not take any other medication or food for 30 minutes. gabapentin 300 mg capsule 300 mg PO TID Qty: 270 3RF nortriptyline 10 mg capsule 10 mg PO QPM Qty: 90 3RF omeprazole 20 mg capsule,delayed release(DR/EC) 20 mg PO QAM Qty: 90 3RF albuterol sulfate 90 mcg/actuation HFA aerosol inhaler 2 puff inhalation Q4H PRN (Reason: shortness of breath or wheezing) Qty: 18 5RF oxycodone-acetaminophen 5-325 mg tablet 2 tab PO Q6H PRN (Reason: pain) Qty: 100 0RF cetirizine [Zyrtec] 10 mg Tablet 10 mg PO QAM ferrous sulfate [iron] 325 mg (65 mg iron) Tablet 325 mg PO QAM montelukast 10 mg tablet 10 mg PO QPM losartan 100 mg tablet 100 mg PO QPM ezetimibe 10 mg tablet 10 mg PO QPM magnesium gluconate 27 mg magnesium (500 mg) tablet 27 mg PO QAM oxycodone 5 mg tablet 5 mg PO Q6H PRN (Reason: pain, severe) Qty: 30 0RF tramadol 50 mg tablet 50 mg PO Q6H PRN (Reason: pain, moderate) Qty: 30 0RF ondansetron HCl 4 mg tablet 4 mg PO Q8 PRN (Reason: Nausea And Vomiting) tizanidine 4 mg tablet 4 mg PO HS PRN (Reason: muscle spasticity) metoprolol succinate 25 mg tablet extended release 24 hr 12.5 mg PO HS Referrals Referrals: Preston Green MD [Primary Care Provider] -
[2022-01-23] MEDS ORDERED: VANCOMYCIN HCL 125 MG/2.5ML SOLN PO SCH (18:00)
[2022-01-23] MEDS ORDERED: RASPBERRY SYRUP 5 ML UDP PO SCH (18:00)
[2022-01-23] MEDS: LACTATED RINGER'S 1,000 ML IV SCH (18:20)
[2022-01-23] MEDS ORDERED: HYDROmorphone INJ 0.5 MG/0.5 ML SYR IV STA (18:34)
[2022-01-23] MEDS ORDERED: ONDANSETRON INJ 2 MG/ML 2 ML VIAL IV PRN (20:25)
[2022-01-23] MEDS ORDERED: tiZANidine HCL 4 MG TABLET PO PRN (20:25)
[2022-01-23] MEDS ORDERED: POLYETHYLENE (MIRALAX) 17 GM PACK PO PRN (20:25)
[2022-01-23] MEDS ORDERED: HYDROmorphone INJ 0.5 MG/0.5 ML SYR IV PRN (20:25)
[2022-01-23] MEDS: LOSARTAN POTASSIUM 50 MG TAB PO SCH (22:02)
[2022-01-23] MEDS: NORTRIPTYLINE HCL 10 MG CAP PO SCH (22:02)
[2022-01-23] MEDS: EZETIMIBE 10 MG TABLET PO SCH (22:02)
[2022-01-23] MEDS: GABAPENTIN 600 MG TAB PO SCH (22:02)
[2022-01-23] MEDS: ACETAMINOPHEN 325 MG TAB PO PRN (22:02)
[2022-01-23] MEDS: MONTELUKAST SODIUM 10 MG TABLET PO SCH (22:03)
[2022-01-23] MEDS: METOPROLOL SUCC 25MG EXT REL TAB PO SCH (22:03)
[2022-01-24] MEDS: ACETAMINOPHEN 325 MG TAB PO PRN ×2 (05:46→19:58)
[2022-01-24] MEDS: LACTATED RINGER'S 1,000 ML IV SCH (05:47)
[2022-01-24 07:22] LABS: Basophils # (auto) 0.03 K/uL (0-0.2); Basophils % (auto) 0.4 %; Eosinophils # (auto) 0.06 K/uL (0-0.50); Eosinophils % (auto) 0.7 %; Hematocrit (blood only) 26.2 % (40.1-51.0); Hemoglobin 8.7 g/dl (14.0-18.0); Immature Granulocytes # (auto) 0.04 K/uL (0.00-0.02); Immature Granulocytes % (auto) 0.5 %; Lymphocytes # (auto) 1.51 K/uL (1.2-3.4); Lymphocytes % (auto) 18.3 %; Mean Corpuscular Hemoglobin 30.3 pg (25.0-34.0); Mean Corpuscular Hgb Conc 33.2 g/dL (32.0-36.0); Mean Corpuscular Volume 91.3 fL (80.0-100.0); Mean Platelet Volume 10.4 fL (9.4-12.4); Monocytes % (auto) 12.1 %; Neutrophils # (auto) 5.62 K/uL (1.4-6.5); Platelet Count 285 K/uL (130-400); RDW Coefficient of Variation 13.5 % (11.5-14.5); RDW Standard Deviation 45.5 fL (36.4-46.3); Red Blood Count 2.87 M/uL (4.63-6.08); White Blood Count 8.26 K/ul (4.8-10.8)
[2022-01-24] MEDS: traMADol HCL 50 MG TABLET PO PRN ×3 (07:38→22:35)
[2022-01-24 07:46] LABS: BUN Creatinine Ratio 25.3 (10-20); Calcium 7.5 mg/dl (8.5-10.1); Creatinine Clr Calc Pharmacy 69.9 ml/min; Est GFR (African American) 97.2 ml/min; Est GFR (Non-African American) 83.8 ml/min; Potassium 3.6 mmol/L (3.5-5.1)
[2022-01-24] MEDS: GABAPENTIN 300 MG CAP PO SCH (08:50)
[2022-01-24] MEDS: FERROUS SULFATE 325 MG TAB PO SCH (08:50)
--- NOTE | 2022-01-24 12:18 | Hospitalist Progress Note ---
Date of Service January 24, 2022 Assessment & Plan (1) Diarrhea: Plan: Weakness, diarrhea, leukocytosis 1 history of C. difficile with prolonged Vanco treatment, ? Recurrence in the setting of preoperative antibiotics Patient globally weak, with diarrhea, and unable to perform activities of daily living at home since returning from surgery Denies focal weakness Leukocytosis is 14.92 Change in diarrhea character to completely liquid in the last 2 days - CT-A/P: 1. There is evidence of a nonspecific colitis as above. Clinical correlation will be required. 2. Small volume of abdominopelvic ascites. 3. No intraperitoneal free air is seen. 4. Post surgical change of the lumbar spine as above. Continue C. difficile precautions. Patient reports he previously was C. difficile gene and toxin negative after having prolonged disease while gene positive and was seen by Karin PACKER. On admission patient is now C. 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 - Stool biofire positive for EAEC, deferred abx therapy. Continue supportive treatment. (2) Lumbar spinal stenosis: Plan: Lumbar stenosis s/p spinal fusion and decompression with Dr. Ayala 01/2022 Patient with some discomfort and pain in his low back at surgical site, improved with medications Continue multimodal pain control, Tylenol first-line, tramadol second line, convert oxycodone to hydromorphone temporarily for breakthrough Surgical site intact, healing well, without erythema, warmth, fluctuance Neurovascularly intact in lower extremities (3) Hx of congestive heart failure: Plan: Leg Edema, hx CHF thought 2/2 NSAID use versus venous stasis with postsurgical reduced ambulation - Patient reports he had a transient history of CHF thought to be 2/2 NSAID use, last echo was with normal ejection fraction and has not had ongoing problems with heart failure, does not require Lasix - Hx venous stasis with compression stockings Denies orthopnea, does have some difficulty laying flat after his surgery Trace ankle edema near/similar to baseline. Patient walking less due to fatigue and postsurgically (4) GERD without esophagitis: Plan: - On Omeprazole at home, will place on Protonix while in house (5) Asthma, mild intermittent: Plan: No wheezing Albuterol as needed (6) Thoracic outlet syndrome: Plan: - Follows Dr. Wadsworth - Takes gabapentin, nortriptyline, tizanidine and doing well No acute change in management (7) Benign essential hypertension: Plan: Takes losartan 100 mg, Metoprolol 12.5 mg nightly, continue Plan PT/OT eval. Continue IVF --> cap this evening as he continues to tolerating oral intake. Am labs ordered. Anticipate can likely be discharged home tomorrow. Plan d/w Dr. Brown. Admission and Anticipated Discharge Date Admission Date: January 23, 2022 Subjective Patient was seen on daily rounds this morning. He is sitting up in bedside chair, reports feeling better today. Was able to eat breakfast. Denies n/v or abd pain. Diarrhea is improving. Denies fever/chills. Review of Systems Review of Systems: All systems reviewed and are unremarkable except as noted in HPI and below. Denies fever, chills, fatigue, headache, nasal congestion, sore throat, cough, chest pain, shortness of breath, palpitations, orthopnea, PND, abdominal pain, n/v, constipation, dysuria, hematuria, frequency, back pain, joint pain or swelling, easy bruising or bleeding, skin lesions or rashes. Physical Exam Physical Exam: GENERAL: 76 yo Well-developed, well-nourished WM. NAD. LUNGS: Clear to auscultation bilaterally. No W/R/R. CARDIOVASCULAR: Regular rate and rhythm. ABDOMEN: Soft, mild diffuse tenderness, non-distended. BS normoactive x 4 quad. EXTREMITIES: No edema. Non-tender. Peripheral pulses +2/4. NEUROLOGIC: A&O x3. Nonfocal PSYCHIATRIC: Cooperative. Appropriate mood and affect. SKIN: Warm, dry, intact. No rashes or lesions. Results & Data Results & Data ([facility]) Vital Signs (Past 12 Hours) Vital Signs Temp Pulse Resp BP Pulse Ox O2 Del Method 01/24/22 07:36 36.6 C 72 18 96/59 L 98 Room Air Laboratory Results 01/24/22 05:51 01/24/22 05:51 PG Care Time/CCT Total # of Minutes Spent Total Time Spent with Patient: Total time spent is greater than 50% in coordination of care (as documented) at patient's floor/unit and/or counseling patient: Coding Level of Care Code 29635 Subseq Obs Care Lvl 2 Diagnoses Diarrhea R19.7 Lumbar spinal stenosis M48.061 Hx of congestive heart failure Z86.79 GERD without esophagitis K21.9 Asthma, mild intermittent J45.20 Thoracic outlet syndrome G54.0 Benign essential hypertension I10
[2022-01-24] MEDS: NORTRIPTYLINE HCL 10 MG CAP PO SCH (20:07)
[2022-01-24] MEDS: MONTELUKAST SODIUM 10 MG TABLET PO SCH (20:07)
[2022-01-24] MEDS: METOPROLOL SUCC 25MG EXT REL TAB PO SCH (20:07)
[2022-01-24] MEDS: GABAPENTIN 600 MG TAB PO SCH (20:08)
[2022-01-24] MEDS: EZETIMIBE 10 MG TABLET PO SCH (20:08)
[2022-01-24] MEDS: LOSARTAN POTASSIUM 50 MG TAB PO SCH (20:08)
[2022-01-25] MEDS: traMADol HCL 50 MG TABLET PO PRN (06:17)
[2022-01-25 07:06] LABS: Basophils # (auto) 0.03 K/uL (0-0.2); Basophils % (auto) 0.5 %; Eosinophils # (auto) 0.07 K/uL (0-0.50); Eosinophils % (auto) 1.2 %; Hematocrit (blood only) 25.5 % (40.1-51.0); Hemoglobin 8.5 g/dl (14.0-18.0); Immature Granulocytes # (auto) 0.04 K/uL (0.00-0.02); Immature Granulocytes % (auto) 0.7 %; Lymphocytes # (auto) 1.48 K/uL (1.2-3.4); Mean Corpuscular Hemoglobin 30.4 pg (25.0-34.0); Mean Corpuscular Hgb Conc 33.3 g/dL (32.0-36.0); Mean Corpuscular Volume 91.1 fL (80.0-100.0); Mean Platelet Volume 9.8 fL (9.4-12.4); Monocytes # (auto) 0.77 K/uL (0.24-0.82); Neutrophils # (auto) 3.52 K/uL (1.4-6.5); Neutrophils % (auto) 59.6 %; Platelet Count 268 K/uL (130-400); RDW Coefficient of Variation 13.3 % (11.5-14.5); RDW Standard Deviation 44.7 fL (36.4-46.3); White Blood Count 5.91 K/ul (4.8-10.8)
[2022-01-25 07:25] LABS: BUN Creatinine Ratio 22.4 (10-20); Calcium 7.9 mg/dl (8.5-10.1); Creatinine Clr Calc Pharmacy 71.5 ml/min; Est GFR (African American) 98.1 ml/min; Est GFR (Non-African American) 84.6 ml/min; Magnesium 1.8 mg/dl (1.7-2.4); Potassium 3.5 mmol/L (3.5-5.1)
[2022-01-25] MEDS: ACETAMINOPHEN 325 MG TAB PO PRN (08:44)
[2022-01-25] MEDS: GABAPENTIN 300 MG CAP PO SCH (08:45)
[2022-01-25] MEDS: FERROUS SULFATE 325 MG TAB PO SCH (08:46)
[2022-01-25] MEDS ORDERED: PANTOprazole 40 MG TAB PO SCH (09:00)
[2022-01-25] MEDS ORDERED: oxyCODONE HCL IR 5 MG TAB (IMMEDIATE RELEASE) PO STA (11:57)
--- NOTE | 2022-01-25 12:09 | Discharge Summary ---
Date of Service January 25, 2022 Admission HPI Per Admitting Provider Chema Milner is a 76-year-old who p/w generalized weakness and diarrhea. Dc 01/19 after spinal fusion Underwent L3-L5 decompression and fusion 03/20/[address] Ayala, was doing well postoperatively but had some constipation. Was put on MiraLAX at that time. Patient does have history of C. difficile in the past. Had not been on extended antibiotics. Had surgery last Sunday. Reports he was doing so well morning was OK to go home after lunch. Sunday felt well, Sunday developed some constipation. He had been taking miralax daily and if he had not gone by Sunday to take 1x dulcolax tablet. Bowels did not start moving until Sunday afternoon. After his BMs he became extremely nauseus and was prescribed zofran. Stopped oxycodone and switched to tramadol. Took tramadol sat evening with zofran. Sunday morning was doing 'ok' but was not eating/drinking as well as he normally would. Took tramadol at 1pm. That afternoon 'rapidly went downhill' and called Dr. Lara office. Severe nausea, diarrhea all night. Was told to come to the ER if not doing well by Sunday, this morning still nauseus and not eating/drinking well and came for evaluation. Not nauseus at time of hospital admission Having BMs hourly. BMs are 'pure liquid now'. Having crampy abdominal pain with improves intermittently with BMs. No fevers, chills, or sweats. Is a little cold but no chills No Chest pain, chest pressure, or shortness of breath Hx of diverticulitis and past C. diff. Had c. diff after abx for diverticulitis. 4 month sof severe symptom, almost had surgery at [facility] then was found to have c diff but improved enough to avoid colectomy. Was ~4 years ago. No abx other than periop tx Medical History: Reviewed Medications: Reviewed. Took no medications this morning Surgical History: Reviewed Allergies: Reviewed Social History: No tobacco ro etoh use. FOrmer smoker socially, few months at most of intermittent use. Code Status: Full Code. Principal Diagnosis 1. Infectious colitis (+EAEC) 2. Dehydration Discharge Exam GENERAL: 76 yo Well-developed, well-nourished WM. NAD. LUNGS: Clear to auscultation bilaterally. No W/R/R. CARDIOVASCULAR: Regular rate and rhythm. ABDOMEN: Soft, mild diffuse tenderness, non-distended. BS normoactive x 4 quad. EXTREMITIES: No edema. Non-tender. Peripheral pulses +2/4. NEUROLOGIC: A&O x3. Nonfocal PSYCHIATRIC: Cooperative. Appropriate mood and affect. SKIN: Warm, dry, intact. No rashes or lesions. Discharge Data Allergies Allergy/AdvReac Type Severity Reaction Status Date / Time meloxicam AdvReac Unknown CHF Verified 01/23/22 16:06 Consultations 01/23/22 15:51 ED Decision to Admit Stat Ordered Studies Abdomen/Pelvis CT 01/23/22 11:09 CT SCAN OF THE ABDOMEN AND PELVIS WITH IV CONTRAST CLINICAL HISTORY: Generalized abdominal pain. Diarrhea. Recent lumbar spine surgery. COMPARISON STUDY: Abdominal CT dated 11/05/2021. TECHNIQUE: Following the IV administration of 94 cc of Optiray 350, CT scan of the abdomen and pelvis is performed from the lung bases to the proximal femora. Images are reviewed in the axial, sagittal, and coronal planes. IV contrast was administered without complication. A dose lowering technique was utilized adhering to the principles of ALARA. The examination is degraded by motion artifact. FINDINGS: Lung bases: The heart is enlarged and without pericardial effusion. The lung bases are grossly clear. There is a small hiatal hernia. Liver: The contrast-enhanced liver is normal in size, contour, and attenuation. There is no intrahepatic biliary ductal dilatation. The hepatic veins and portal veins are patent. Gallbladder: Unremarkable. Spleen: Normal in size and attenuation. Pancreas: Unremarkable. Adrenal glands: Unremarkable. Kidneys: The contrast enhanced kidneys demonstrate mild cortical atrophy and are without hydronephrosis. The kidneys enhance symmetrically. Abdominal vasculature: The abdominal aorta is normal in course and caliber noting mild to moderate atherosclerotic calcification. Bowel: There is significant wall thickening and edema seen involving the colon. This extends from the cecum to the mid descending colon. There is associated pericolonic inflammation. Liquid stool is noted in the right colon. There is moderate colonic diverticulosis without CT evidence of acute diverticulitis. There is no evidence of bowel obstruction. The appendix is normal as visualized Peritoneum: There is a small volume of perihepatic and pelvic ascites. No intraperitoneal free air is seen. Lymphadenopathy: None. Pelvic viscera: The prostate gland is mildly enlarged and heterogeneous. The bladder wall appears thickened/trabeculated indicating chronic outlet obstruction. Skeletal structures: The skeletal structures are osteopenic. There is lumbosacral spondylosis with postsurgical change from L3-L5 spinal fusion. Postsurgical change and edema is seen within the posterior paraspinous soft tissues at the surgical levels. No lytic or blastic lesions are seen. IMPRESSION: 1. There is evidence of a nonspecific colitis as above. Clinical correlation will be required. 2. Small volume of abdominopelvic ascites. 3. No intraperitoneal free air is seen. 4. Post surgical change of the lumbar spine as above. 5. Additional findings as above. ACT 112: Negative or not required by law. Electronically signed by: Preston Nagy M.D. 01/23/2022 2:[address] 01/23/22 12:[address] DOSE: 1034.12 mGy.cm HISTORY: confusion TECHNIQUE: Multiaxial CT images of the head were performed without the use of intravenous contrast. Automated exposure control was utilized for this study. A dose lowering technique was utilized adhering to the principles of ALARA. Comparison: None. Findings: The paranasal sinuses and mastoid air cells are clear. The calvarium and skull base are intact. The ventricles and sulci are within normal limits. There is no mass, hematoma, midline shift, or acute infarct. Impression: No acute intracranial abnormality. ACT 112: Negative or not required by law. Electronically signed by: Russell Mao M.D. 01/23/2022 2:22 PM Hospital Course (1) Diarrhea: Weakness, diarrhea, leukocytosis 1 history of C. difficile with prolonged Vanco treatment, ? Recurrence in the setting of preoperative antibiotics Patient globally weak, with diarrhea, and unable to perform activities of daily living at home since returning from surgery Denies focal weakness Leukocytosis is 14.92 Change in diarrhea character to completely liquid in the last 2 days - CT-A/P: 1. There is evidence of a nonspecific colitis as above. Clinical correlation will be required. 2. Small volume of abdominopelvic ascites. 3. No intraperitoneal free air is seen. 4. Post surgical change of the lumbar spine as above. Continue C. difficile precautions. Patient reports he previously was C. difficile gene and toxin negative after having prolonged disease while gene positive and was seen by [facility]. On admission patient is now C. 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 - Stool biofire positive for EAEC, deferred abx therapy. Continue supportive treatment. (2) Lumbar spinal stenosis: Lumbar stenosis s/p spinal fusion and decompression with Dr. Ayala 01/2022 Patient with some discomfort and pain in his low back at surgical site, imp roved with medications Continue multimodal pain control, Tylenol first-line, tramadol second line, convert oxycodone to hydromorphone temporarily for breakthrough Surgical site intact, healing well, without erythema, warmth, fluctuance Neurovascularly intact in lower extremities (3) Hx of congestive heart failure: Leg Edema, hx CHF thought 2/2 NSAID use versus venous stasis with postsurgical reduced ambulation - Patient reports he had a transient history of CHF thought to be 2/2 NSAID use, last echo was with normal ejection fraction and has not had ongoing problems with heart failure, does not require Lasix - Hx venous stasis with compression stockings Denies orthopnea, does have some difficulty laying flat after his surgery Trace ankle edema near/similar to baseline. Patient walking less due to fatigue and postsurgically (4) GERD without esophagitis: - On Omeprazole at home, will place on Protonix while in house (5) Asthma, mild intermittent: No wheezing Albuterol as needed (6) Thoracic outlet syndrome: - Follows Dr. Wadsworth - Takes gabapentin, nortriptyline, tizanidine and doing well No acute change in management (7) Benign essential hypertension: Takes losartan 100 mg, Metoprolol 12.5 mg nightly, continue Plan Patient tolerating oral intake. Subjectively feels much better. No BM since yesterday at 10pm. No significant abd pain or nausea. He is anxious to be discharged. Medically and hemodynamically stable for such. Follow low residue diet as tolerated and continue to hydrate orally. Advised pcp follow up within 1 week. Plan d/w Dr. Jason Brown who has also seen and evaluated this patient and agrees with aforementioned. Total Time Total Time Spent Total Time Spent (In Minutes): <30 minutes Discharge Plan Discharge Items Patient Disposition: Home - Self-Care Reason For Visit: POOR PO, DIARRHEA, ?C DIFF Discharge Diagnosis: Diarrhea, dehydration Activity: Resume your previous activity Non-emergency contact: Primary Care Provider Call non-emergency contact if: you have any medication questions Follow-up/Referrals: Preston Green MD [Primary Care Provider] - 01/31/22 11:30 am Diet: Regular Addtl Attending Provider Instructions: You were hospitalized due to nausea, diarrhea, and poor oral intake. You were found to have an infectious form of diarrhea which was NOT c. diff. You have responded well to conservative treatment with fluids and anti-nausea medications. Your diarrhea is improving and you are tolerating food and liquids. You can be discharged home and plan to continue to follow a "low residue" or "low fiber" diet as tolerated. You can resume all of your medications as prescribed prior to your hospitalization. It is advised that you follow up with your family doctor within 1 week of discharge. If you have any questions or concerns after your discharge, feel free to contact the nonemergency number listed on your discharge paperwork. In the event of a medical emergency, call 911. Pending Studies at Discharge: No Stand-Alone Forms: My [facility] Access [employer], Smoking Cessation Medications and DC Order Prescriptions: Continued alendronate 70 mg tablet 70 mg PO WEEKLY Qty: 12 4RF Rx Instructions: A take weekly with large glass of plain water. Do not lie down for 30 minutes after taking it. Do not take any other medication or food for 30 minutes. gabapentin 300 mg capsule 300 mg PO TID Qty: 270 3RF nortriptyline 10 mg capsule 10 mg PO QPM Qty: 90 3RF omeprazole 20 mg capsule,delayed release(DR/EC) 20 mg PO QAM Qty: 90 3RF albuterol sulfate 90 mcg/actuation HFA aerosol inhaler 2 puff inhalation Q4H PRN (Reason: shortness of breath or wheezing) Qty: 18 5RF oxycodone-acetaminophen 5-325 mg tablet 2 tab PO Q6H PRN (Reason: pain) Qty: 100 0RF cetirizine [Zyrtec] 10 mg Tablet 10 mg PO QAM ferrous sulfate [iron] 325 mg (65 mg iron) Tablet 325 mg PO QAM montelukast 10 mg tablet 10 mg PO QPM losartan 100 mg tablet 100 mg PO QPM ezetimibe 10 mg tablet 10 mg PO QPM magnesium gluconate 27 mg magnesium (500 mg) tablet 27 mg PO QAM oxycodone 5 mg tablet 5 mg PO Q6H PRN (Reason: pain, severe) Qty: 30 0RF tramadol 50 mg tablet 50 mg PO Q6H PRN (Reason: pain, moderate) Qty: 30 0RF ondansetron HCl 4 mg tablet 4 mg PO Q8 PRN (Reason: Nausea And Vomiting) tizanidine 4 mg tablet 4 mg PO HS PRN (Reason: muscle spasticity) metoprolol succinate 25 mg tablet extended release 24 hr 12.5 mg PO HS Discharge Orders: Discharge Order (Routine); Ordered 01/25/22 Ordered By: Stephanie Guerra/Other Patient Handouts: Back Care Every Day, Dehydration Admission Data Admit Date/Time: 01/23/22 16:37 Attending Provider: Jason Brown Admit Provider: Peyman Kent Primary Care Provider: Preston Green Other Providers: Peyman Kent Other Interventions: Discharge Summary Assessment (RN) Last Done: 01/25/22 12:37 Supervising Physician Co-Signing Physician Notes I supervised Stephanie Dill PA-C on the care of this patient. I interviewed and examined the patient independently of her. The plan is as written in her note except for any following changes/exceptions: None 76yo M w/ hx of C. diff. This time with diarrhea due to E. coli. Feeling better at this point. Tolerating food. Diarrhea has resolved. Ready for discharge. Coding Level of Care Code 42529 OBS Care - Discharge Diagnoses Diarrhea R19.7 Lumbar spinal stenosis M48.061 Hx of congestive heart failure Z86.79 GERD without esophagitis K21.9 Asthma, mild intermittent J45.20 Thoracic outlet syndrome G54.0 Benign essential hypertension I10
== END 2022-01-25 13:14 | disposition home or self-care (01) ==
LOC: ED 09:27 → EDINP 09:27 → SUATTDRO 16:37 → 3W 19:46

== ENCOUNTER 2024-06-25 07:45 | Inpatient (IN) ==
--- NOTE | 2024-06-10 11:47 | PAT Medication Instructions ---
Medication Instructions Date of Service June 10, 2024 Home Medications Medication Instructions Recorded albuterol sulfate 90 mcg/actuation 2 puff inhalation Q4H PRN 12/30/21 aerosol inhaler shortness of breath or wheezing #18 grams metoprolol succinate 25 mg 12.5 mg (1/2 x 25 mg) PO HS #45 07/10/23 tablet,extended release 24 hr tabs ezetimibe 10 mg tablet 10 mg PO QPM #90 tabs 10/09/23 oxycodone-acetaminophen 5 mg-325 1 tab PO Q6H PRN pain #100 tabs 02/08/24 mg tablet losartan 100 mg tablet 100 mg PO QPM #90 tabs 04/22/24 montelukast 10 mg tablet 10 mg PO QPM #90 tabs 04/22/24 nortriptyline 10 mg capsule 10 mg PO QPM #30 caps 04/22/24 albuterol sulfate 90 mcg/actuation aerosol inhaler 2 puff inhalation Q4H PRN shortness of breath or wheezing magnesium 200 mg tablet 400 mg PO QAM metoprolol succinate 25 mg tablet,extended release 24 hr 12.5 mg (1/2 x 25 mg) PO HS ezetimibe 10 mg tablet 10 mg PO QPM oxycodone-acetaminophen 5 mg-325 mg tablet 1 tab PO Q6H PRN pain losartan 100 mg tablet 100 mg PO QPM montelukast 10 mg tablet 10 mg PO QPM nortriptyline 10 mg capsule 10 mg PO QPM cetirizine 10 mg tablet (Zyrtec) 10 mg PO QAM cholecalciferol (vitamin D3) 50 mcg (2,000 unit) capsule (Vitamin D3) 50 mcg PO DAILY furosemide 20 mg tablet 20 mg PO QAM PRN swelling gabapentin 600 mg tablet 600 mg PO TID ipratropium bromide 21 mcg (0.03 %) nasal spray 2 spray intranasal BID PRN asthma omeprazole 40 mg capsule,delayed release 40 mg PO QAM tizanidine 4 mg tablet 4 mg PO HS muscle spasticity DO NOT take the morning of surgery magnesium 200 mg tablet 400 mg PO QAM cetirizine 10 mg tablet (Zyrtec) 10 mg PO QAM cholecalciferol (vitamin D3) 50 mcg (2,000 unit) capsule (Vitamin D3) 50 mcg PO DAILY furosemide 20 mg tablet 20 mg PO QAM PRN swelling Take morning of surgery With a small sip of water, OTHERWISE NOTHING TO EAT OR DRINK AFTER MIDNIGHT: albuterol sulfate 90 mcg/actuation aerosol inhaler 2 puff inhalation Q4H PRN shortness of breath or wheezing (use if needed; please bring with you to hospital day of surgery if possible) oxycodone-acetaminophen 5 mg-325 mg tablet 1 tab PO Q6H PRN pain (if needed) gabapentin 600 mg tablet 600 mg PO TID ipratropium bromide 21 mcg (0.03 %) nasal spray 2 spray intranasal BID PRN asthma (if needed) omeprazole 40 mg capsule,delayed release 40 mg PO QAM Take evening before surgery albuterol sulfate 90 mcg/actuation aerosol inhaler 2 puff inhalation Q4H PRN shortness of breath or wheezing (if needed) metoprolol succinate 25 mg tablet,extended release 24 hr 12.5 mg (1/2 x 25 mg) PO HS ezetimibe 10 mg tablet 10 mg PO QPM oxycodone-acetaminophen 5 mg-325 mg tablet 1 tab PO Q6H PRN pain (if needed) losartan 100 mg tablet 100 mg PO QPM montelukast 10 mg tablet 10 mg PO QPM nortriptyline 10 mg capsule 10 mg PO QPM gabapentin 600 mg tablet 600 mg PO TID ipratropium bromide 21 mcg (0.03 %) nasal spray 2 spray intranasal BID PRN asthm a (if needed) tizanidine 4 mg tablet 4 mg PO HS muscle spasticity Other Notes If you have any questions please call us at [phone] or [phone] or [phone] or [phone]
--- NOTE | 2024-06-13 10:17 | Anesthesiology Consultation ---
Date of Service June 13, 2024 Assessment & Plan (1) Encounter for pre-operative examination: - Infectious disease screening: Per assessment on 06/13/24- No known recent infectious disease contacts. Cough, congestion/runny nose and fatigue s/p PCP evaluation 06/04/24. Treated with z-pack (now completed). Symptoms resolved except residual congestion. DOS > 10 days after symptom onset. Patient advised to contact PAT/surgeon if not at baseline prior to surgery. Nothing further needed at this time. - Abnormal preop CXR: CXR done 06/13/24 notes "0.9 cm nodular density overlying the right lung apex could represent a pulmonary nodule or parenchymal scarring. Further evaluation is recommended with nonemergent low-dose chest CT." Workload note written to PCP > PCP response 06/14/24: "Chest x-ray showed a right sided lung nodule. This will not interfere with upcoming surgery. It would be recommended to get a CAT scan to assess the nodule. Please set up CAT scan either before or after upcoming surgery." Chest CT scheduled for 08/04/24 (after surgery)* - Patient acceptable risk for surgery pending surgeon-ordered PCP preop evaluation (DANGG, appt 06/17). Chart Review Chart Review: Patient seen in Pre Admission Testing Teaching & Discussion Pre-Anesthesia Teaching/Discussion Notes: Instructed NPO after midnight before surgery,except medications with 15 cc of water. Medication instructions provided according to the PAT guidelines. History Surgery Operation Date: 06/25/24 13:25 Proposed Procedures p Open Left Sacroiliac Joint Fusion - Bryant Ayala, Height/Weight Height: 5 ft 7.5 in Weight: 75.3 kg Allergies Allergy/AdvReac Type Severity Reaction Status Date / Time meloxicam Allergy Severe CHF Verified 06/10/24 10:06 Medications Home Medications Medication Instructions Recorded Confirmed Last Taken albuterol sulfate 90 mcg/actuation 2 puff inhalation Q4H PRN 12/30/21 06/10/24 Unknown aerosol inhaler shortness of breath or wheezing #18 grams magnesium 200 mg tablet 400 mg PO QAM 10/10/22 06/10/24 Unknown metoprolol succinate 25 mg 12.5 mg (1/2 x 25 mg) PO HS #45 07/10/23 06/10/24 Unknown tablet,extended release 24 hr tabs ezetimibe 10 mg tablet 10 mg PO QPM #90 tabs 10/09/23 06/10/24 Unknown oxycodone-acetaminophen 5 mg-325 1 tab PO Q6H PRN pain #100 tabs 02/08/24 06/10/24 Unknown mg tablet losartan 100 mg tablet 100 mg PO QPM #90 tabs 04/22/24 06/10/24 Unknown montelukast 10 mg tablet 10 mg PO QPM #90 tabs 04/22/24 06/10/24 Unknown nortriptyline 10 mg capsule 10 mg PO QPM #30 caps 04/22/24 06/10/24 Unknown cetirizine 10 mg tablet (Zyrtec) 10 mg PO QAM 06/10/24 06/10/24 Unknown cholecalciferol (vitamin D3) 50 50 mcg PO DAILY 06/10/24 06/10/24 Unknown mcg (2,000 unit) capsule (Vitamin D3) furosemide 20 mg tablet 20 mg PO QAM PRN swelling 06/10/24 06/10/24 Unknown gabapentin 600 mg tablet 600 mg PO TID 06/10/24 06/10/24 Unknown ipratropium bromide 21 mcg (0.03 2 spray intranasal BID PRN asthma 06/10/24 06/10/24 Unknown %) nasal spray omeprazole 40 mg capsule,delayed 40 mg PO QAM 06/10/24 06/10/24 Unknown release tizanidine 4 mg tablet 4 mg PO HS muscle spasticity 06/10/24 06/10/24 Unknown Past Medical History Medical History Allergic rhinitis Anemia Asthma Benign essential hypertension Cervical stenosis of spinal canal Cervicalgia Chronic laryngitis Chronic low back pain GERD (gastroesophageal reflux disease) Heart murmur Echo 01/2024: Mild AR/MR History of CHF (congestive heart failure) 10+ years ago felt 2/2 meloxicam reaction, previously evaluated by cardio History of colitis History of COVID-19 (11/2023) History of diverticulitis 5+ years ago History of rectal polyps [place] (hard of hearing) Hx of adenomatous colonic polyps Hx of renal calculi Passed on own Hyperlipidemia Osteopenia Osteoporosis Rotator cuff arthropathy of both shoulders Thoracic outlet syndrome associated with cervical rib Trigger finger, right index finger Had injection, helped pain Exercise / Class Metabolic Activity II 4-5 Yardwork/Stairs/Walk up hill Past Family History Family History Mother Cervical cancer Grandfather (Maternal) Lung cancer smoker Grandmother (Maternal) Hypertension Heart disease Father Asthma Other Colonic polyp Colorectal cancer No family history of adverse response to anesthesia No family history of bleeding disorder Past Surgical History Surgical History Cervical vertebral fusion (2013) H/O arthroscopic knee surgery Right History of cataract surgery R/L History of colonoscopy with polypectomy History of lumbar surgery (01/17/22) L3-L5 Post-op nausea, diarrhea, poor oral intake at home after discharge; evaluated at [facility], c.diff negative, treated with conservative management History of postoperative nausea and vomiting After going home after back surgery 2021 History of prostate biopsy benign History of tooth extraction History of umbilical hernia repair Past Anesthesia History No Family Hx of Anesthesia Complications and Other ( Post-op nausea, diarrhea, poor oral intake at home after discharge; evaluated at [facility], c.diff negative, treated with conservative management) History of PONV No Hx of Motion Sickness and History of PONV (After going home after back surgery 2021) Social History Smoking Status: Former smoker Do You Dip or Chew Tobacco: No Smoking End Date: Quit 3 years ago (hx occasional cigars, pipes, and cigarettes) Hx Alcohol Use: Yes Alcohol type: hard liquor alcohol intake frequency: a few times a month Hx Substance Use: No substance use type: does not use Review of Systems Patient denies chest pain, shortness of breath, dyspnea on exertion, fever, chills, cough, wheezing, palpitations. Physical Exam Vital Signs BP 130/69 P 65 TEMP 98.3 SP02 97%RA RESP 16 Physical Mildly decreased cervical extension range of motion. Full TMJ range of motion. TMD 3 finger breaths Mallampati Score III Dentition: upper dental appliance that fastens to four implant posts Lungs: clear throughout to auscultation Cardiac: regular rate and rhythm, no murmurs noted Spine: normal Carotid arteries: negative bruit Extremities: no LE edema Lab Results Anesthesia Preop Results Results Anesthesia Widget: WBC 8.81 K/ul (4.8-10.8) 06/13/24 Hgb 12.0 g/dl (14.0-18.0) L 06/13/24 Hct 36.2 % (42.0-52.0) L 06/13/24 Plt 295 K/uL (130-400) 06/13/24 Na 138 mmol/L (136-145) 06/13/24 K 4.4 mmol/L (3.5-5.1) 06/13/24 Cl 102 mmol/L (98-107) 06/13/24 CO2 32 mmol/L (21-32) 06/13/24 BUN 24 mg/dl (6-23) H 06/13/24 Creat 0.99 mg/dl (0.6-1.4) 06/13/24 Glucose Level 94 mg/dl (70-99(Fasting)) 06/13/24 PT 10.4 Seconds (9.0-12.0) 06/13/24 PTT 28 Seconds (21-31) 06/13/24 INR 1.0 (0.9-1.1) 06/13/24 Urine Color Yellow 06/13/24 Urine Appearance Clear (Clear) 06/13/24 Urine pH 7.5 (4.5-7.5) 06/13/24 Urine Specific [place] 1.026 (1.000-1.030) 06/13/24 Urine Protein Negative (Negative) 06/13/24 Urine Glucose (UA) Negative (Negative) 06/13/24 Urine Ketones Trace (Negative) H 06/13/24 Urine Blood Negative (Negative) 06/13/24 Urine Nitrite Negative (Negative) 06/13/24 Urine Bilirubin Negative (Negative) 06/13/24 Urine Urobilinogen Negative (Negative) 06/13/24 Urine Leukocyte Esterase Negative (Negative) 06/13/24 Blood Type A Negative 06/13/24 Antibody Screen NEGATIVE 06/13/24 Testing Electrocardiogram Date: 06/13/24 NSR at 67bpm. "Normal ECG" Chest X-Ray Date: 06/13/24 FINDINGS: 0.9 cm nodular density overlying the right lung apex. Lungs are otherwise clear. No pneumothorax or effusion. Normal heart size. Left-sided aortic arch. Midline trachea. Cervical spine fusion hardware. No acute osseous abnormality. IMPRESSION: No acute cardiopulmonary findings. 0.9 cm nodular density overlying the right lung apex could represent a pulmonary nodule or parenchymal scarring. Further evaluation is recommended with nonemergent low-dose chest CT. Echocardiogram Date: 01/25/24 EF 60-65%. Mild cLVH. Normal wall motion. Mild AR/MR. Grade II DD.
[2024-06-25] MEDS: LR 15ML/HR IV SCH (08:18)
[2024-06-25] MEDS: LR 60ML/HR IV SCH (08:19)
[2024-06-25] MEDS: GABAPENTIN 300 MG CAP PO SCH (08:26)
[2024-06-25] MEDS: CeleBREX 200 MG CAP PO SCH (08:29)
[2024-06-25] MEDS: ACETAMINOPHEN 500 MG TAB PO SCH (08:29)
[2024-06-25] MEDS ORDERED: MIDAZOLAM HCL 1 MG/ML 2ML VIAL ONE (08:30)
[2024-06-25] MEDS ORDERED: LIDOCAINE 2% 2 ML VIAL/AMP(20MG/ML) INFIL ONE (08:30)
[2024-06-25] MEDS ORDERED: PROPOFOL IV EMULSION 10 MG/ML 20 ML VIAL IV ONE (08:30)
[2024-06-25] MEDS ORDERED: fentaNYL citrate PF 100 MCG/2 ML VIAL ONE (08:31)
[2024-06-25] MEDS ORDERED: ROCURONIUM BROMIDE 10 MG/ML 5 ML VIAL IV ONE (08:31)
[2024-06-25] MEDS ORDERED: DEXAMETHASONE SOD INJ 4 MG/ML VIAL ONE (08:31)
[2024-06-25] MEDS ORDERED: ONDANSETRON INJ 2 MG/ML 2 ML VIAL ONE (08:31)
[2024-06-25] MEDS: FLOSEAL HEMOSTATIC MATRIX 10ML TOP ONE (08:37)
--- NOTE | 2024-06-25 08:52 | History & Physical Bridge Note ---
Date of Service June 25, 2024 History & Physical Bridge Note I have examined the patient, reviewed the History & Physical and in the interval since the performance of the History & Physical I have noted the following changes of clinical significance: no changes noted
--- NOTE | 2024-06-25 08:53 | History & Physical Report ---
Date of Service June 25, 2024 Assessment & Plan (1) Sacroiliitis: Plan: Open left sacroiliac joint fusion History of Present Illness Chief Complaint: Sacroiliitis Primary Care Provider: Preston Green MD This is a 78-year-old male known to me the presents with significant unremitting sacroiliitis and is here for surgical intervention. Allergies Allergy/AdvReac Type Severity Reaction Status Date / Time meloxicam Allergy Severe CHF Verified 06/25/24 07:49 Home Medications Medication Instructions Recorded Confirmed Type magnesium 200 mg tablet 400 mg PO QAM 10/10/22 06/25/24 History metoprolol succinate 25 mg 12.5 mg (1/2 x 25 mg) PO HS #45 07/10/23 06/25/24 Rx tablet,extended release 24 hr tabs ezetimibe 10 mg tablet 10 mg PO QPM #90 tabs 10/09/23 06/25/24 Rx losartan 100 mg tablet 100 mg PO QPM #90 tabs 04/22/24 06/25/24 Rx montelukast 10 mg tablet 10 mg PO QPM #90 tabs 04/22/24 06/25/24 Rx nortriptyline 10 mg capsule 10 mg PO QPM #30 caps 04/22/24 06/25/24 Rx cetirizine 10 mg tablet (Zyrtec) 10 mg PO QAM 06/10/24 06/25/24 History cholecalciferol (vitamin D3) 50 50 mcg PO DAILY 06/10/24 06/25/24 History mcg (2,000 unit) capsule (Vitamin D3) furosemide 20 mg tablet 20 mg PO QAM PRN swelling 06/10/24 06/25/24 History gabapentin 600 mg tablet 600 mg PO TID 06/10/24 06/25/24 History ipratropium bromide 21 mcg (0.03 2 spray intranasal BID PRN asthma 06/10/24 06/25/24 History %) nasal spray omeprazole 40 mg capsule,delayed 40 mg PO QAM 06/10/24 06/25/24 History release tizanidine 4 mg tablet 4 mg PO HS muscle spasticity 06/10/24 06/25/24 History albuterol sulfate 90 mcg/actuation 2 puff inhalation Q4H PRN 06/17/24 06/25/24 Rx aerosol inhaler shortness of breath or wheezing #6.7 grams oxycodone-acetaminophen 5 mg-325 1 tab PO Q6H PRN pain #100 tabs 06/17/24 06/25/24 Rx mg tablet Past Med/Surg History Problem List (Updated 06/25/24 @ 08:53 by Bryant Ayala DO) Sacroiliitis Chronic left SI joint pain Nodule of right lung Solar keratosis Lesion of skin of left ear Changing skin lesion Rotator cuff tear arthropathy of both shoulders Cervicalgia Vitamin D insufficiency Numbness and tingling Balance disorder Sensorineural hearing loss (SNHL) of both ears Chronic laryngitis Urinary obstruction Lumbar spinal stenosis Encounter for pre-operative examination Osteoporosis Osteopenia Allergic rhinitis (Acute) Asthma, mild intermittent (Acute) Benign essential hypertension (Acute) Colon adenoma (Acute) GERD without esophagitis (Acute) Hyperlipidemia (Acute) Hypomagnesemia (Acute) Lumbar radiculopathy (Acute) Chronic low back pain Cervical stenosis of spinal canal (Acute) 2013 Medical History Allergic rhinitis Anemia Asthma Benign essential hypertension Cervical stenosis of spinal canal Cervicalgia Chronic laryngitis Chronic low back pain GERD (gastroesophageal reflux disease) Heart murmur Echo 01/2024: Mild AR/MR History of CHF (congestive heart failure) 10+ years ago felt 2/2 meloxicam reaction, previously evaluated by cardio History of colitis History of COVID-19 (11/2023) History of diverticulitis 5+ years ago History of rectal polyps [place] (hard of hearing) Hx of adenomatous colonic polyps Hx of renal calculi Passed on own Hyperlipidemia Osteopenia Osteoporosis Rotator cuff arthropathy of both shoulders Thoracic outlet syndrome associated with cervical rib Trigger finger, right index finger Had injection, helped pain Surgical History Cervical vertebral fusion (2013) H/O arthroscopic knee surgery Right History of cataract surgery R/L History of colonoscopy with polypectomy History of lumbar surgery (01/17/22) L3-L5 Post-op nausea, diarrhea, poor oral intake at home after discharge; evaluated at [facility], c.diff negative, treated with conservative management History of postoperative nausea and vomiting After going home after back surgery 2021 History of prostate biopsy benign History of tooth extraction History of umbilical hernia repair Family History Mother Cervical cancer Grandfather (Maternal) Lung cancer smoker Grandmother (Maternal) Hypertension Heart disease Father Asthma Other Colonic polyp Colorectal cancer No family history of adverse response to anesthesia No family history of bleeding disorder Social History Smoking Status: Former smoker Tobacco Type: Cigarettes, Pipe and Cigars Age Started Using Tobacco: 20; Age Quit Using Tobacco: 22; packs per day: 0.5; Smoking End Date: Quit 3 years ago (hx occasional cigars, pipes, and cigarettes); Second Hand Exposure: No; Do You Dip or Chew Tobacco: No; Tobacco Cessation Education Requested by Patient: No Hx Alcohol Use: Yes Alcohol type: hard liquor Alcohol Intake Frequency Comment: once a week Hx Substance Use: No Preferred Language: [place] Communication Ability: Effective Visual Impairment: No Limitations Hearing Ability: Normal Optical Glass Inspector Required: No Beliefs That Will Affect Care: None marital status: Current Living Situation: Spouse current occupational status: retired Other Information That Helps Us Care for You: No Feels Safe at Home: Yes Safety Concerns: Feels Safe At This Time Dental Care, Regularly: Yes Physical Activity Frequency: Daily Seatbelt Use: always Assistive Devices: Walker and Other Assistive Devices Comment: 4 dental implants- removable Physical Exam Physical Exam: Patient is alert and oriented Heart regular rhythm Lungs clear Results & Data Results & Data Vital Signs (Past 12 Hours) Vital Signs Temp Pulse Resp BP Pulse Ox O2 Del Method 06/25/24 07:59 Room Air 06/25/24 07:58 36.5 C 69 18 145/73 H 99 Room Air
[2024-06-25] MEDS ORDERED: PROMETHAZINE HCL 6.25 MG in SODIUM CHLORIDE 0.9% 50 ML IV PRN (08:58)
[2024-06-25] MEDS ORDERED: ePHEDrine sulfate 50 MG/ML AMP IV PRN (08:58)
[2024-06-25] MEDS ORDERED: ATROPINE SULFATE 0.1 MG/ML 10ML SYR IV PRN (08:58)
[2024-06-25] MEDS: ceFAZolin 2000MG 2,000 MG/15 ML SYR IV SCH (09:45)
[2024-06-25] MEDS ORDERED: ePHEDrine sulfate 50 MG/5 ML SYR ONE (09:47)
[2024-06-25] MEDS: BUPIVACAINE/EPINEPHRINE 0.25% 1:200,000 30 ML VIAL ONE (09:53)
[2024-06-25] MEDS ORDERED: SUGAMMADEX SODIUM 200 MG/2 ML VIAL IV ONE (10:00)
[2024-06-25] MEDS: ceFAZolin 330 MG/ML 1 GM VIAL ONE (10:08)
--- NOTE | 2024-06-25 10:20 | Fluoroscopy Report ---
FL sacrum CLINICAL HISTORY: LEFT SI JOINT FUSION COMPARISON STUDY: None FLUOROSCOPY TIME: 63 second FLUOROSCOPY IMAGES: 3 EXPOSURE DOSE: 44 mGy FINDINGS: Fluoroscopy was provided for instrumented fusion of the left SI joint. IMPRESSION: Intraoperative fluoroscopy. ACT 112: Negative or not required by law. Electronically signed by: Braxton Pate M.D. 06/25/2024 10:19 AM
--- NOTE | 2024-06-25 10:21 | Operative Report ---
Post Operative Report Pre & Post Diagnosis Operation Date: 06/25/24 09:15 Pre-Op Diagnosis: Sacroiliitis on the left Post-Op Diagnosis: same I identified the patient and participated in the time-out.: Yes Procedure Operation Date: 06/25/24 09:15 Actual Procedures #1 open left SI joint fusion. #2 placement of globus of versa implant 9 mm in height with os design bone graft Surgeon Bryant Ayala DO Percussion Tuner Kia Singh Estimated Blood Loss 20 Findings Consistent with Post-Op Diagnosis Specimens None Indications This is a 78-year-old male that presents with chronic persistent sacroiliitis. After failing course of nonoperative care is here for surgical invention. Description of Procedure Patient was met with identified and forms obtained. Patient was then taken to the operative suite underwent the patient placed in a prone position ingestible chest padded bolsters. All bony prominences well-padded eyes inspected to ensure no external pressure placed upon them. This point the left upper buttock was prepped and draped in normal sterile fashion. The assistance of fluoroscopy identified the posterior entrance to the left SI joint. Approximately 3 cm incision was placed directly over the left SI joint down to the posterior ligaments. And then placed a joint finder within the joint verifying position in AP and lateral planes. This is followed by dilator and ultimately a working cannula placed within the joint. The joint was then drilled and curetted to subcortical bleeding bone. I then placed a 9 mm versa implant interdigitating the ileum to the sacrum filled with os design bone graft. Was locked in position. The incision was then bereket irrigated and closed with subcutaneous Vicryl and 4 Monocryl for final closure. Steri-Strips sterile dressing placed. Patient waken taken to PACU in stable condition. Please note Kia Singh was present at the entire procedure and while the patient positioning complex portion of the surgery and final skin closure. I attest to the content of the Intraoperative Record and any orders documented therein. Any exceptions are noted below.
[2024-06-25] MEDS: HYDROmorphone INJ 2 MG/ML SYR/VIAL IV PRN (10:58)
[2024-06-25 11:33] VITALS: RESP 16
[2024-06-25] MEDS ORDERED: NALOXONE HCL 0.4 MG/1 ML VIAL/CARP IV PRN (11:48)
[2024-06-25] MEDS ORDERED: HYDROmorphone INJ 1 MG/ML SYRINGE IV PRN (11:48)
[2024-06-25] MEDS ORDERED: HYDROmorphone INJ 0.5 MG/0.5 ML SYR IV PRN (11:48)
[2024-06-25] MEDS ORDERED: IPRATROPIUM BROMIDE NASAL SPRAY 0.03% 30 ML PRN (11:48)
[2024-06-25] MEDS ORDERED: ONDANSETRON INJ 2 MG/ML 2 ML VIAL IV PRN (11:48)
[2024-06-25] MEDS ORDERED: ONDANSETRON 4 MG OD TAB PO PRN (11:48)
[2024-06-25] MEDS ORDERED: PROMETHAZINE 12.5 MG/50.5 ML BAG IV PRN (11:48)
[2024-06-25] MEDS ORDERED: traMADol HCL 50 MG TABLET PO PRN (11:48)
[2024-06-25] MEDS ORDERED: ACETAMINOPHEN 500 MG TAB PO PRN (11:48)
[2024-06-25] MEDS ORDERED: ACETAMINOPHEN 1,000 MG/100 ML VIAL IV PRN (11:48)
[2024-06-25] MEDS ORDERED: METOCLOPRAMIDE HCL INJ 5 MG/ML 2 ML VIAL IV PRN (11:48)
[2024-06-25 11:51] VITALS: TEMP 97.7
--- NOTE | 2024-06-25 13:39 | Anesthesiology Progress Note ---
Date of Service June 25, 2024 Anesthesia Post Procedure Vital Signs Vital Signs: Temp Pulse Pulse Resp BP Pulse Ox O2 Del Method 06/25/24 12:31 36.5 C 70 68 16 138/72 94 06/25/24 12:20 36.5 C 68 16 138/72 94 Room Air 06/25/24 11:48 36.5 C 69 16 125/67 94 Room Air 06/25/24 11:25 36.7 C 70 16 117/67 97 Room Air 06/25/24 11:10 69 12 126/70 95 Room Air 06/25/24 11:00 36.5 C 60 12 131/72 96 Room Air 06/25/24 10:50 66 20 124/69 98 Room Air 06/25/24 10:40 65 18 139/71 97 Room Air 06/25/24 10:28 36.2 C L 62 14 152/76 H 96 Oxymask 06/25/24 07:59 Room Air 06/25/24 07:58 36.5 C 69 18 145/73 H 99 Room Air O2 Flow Rate 06/25/24 12:31 06/25/24 12:20 06/25/24 11:48 06/25/24 11:25 06/25/24 11:10 06/25/24 11:00 06/25/24 10:50 06/25/24 10:40 06/25/24 10:28 6 06/25/24 07:59 06/25/24 07:58 Pain Intensity Left Lower Back: Pain Intensity: 3 Transfer of Care Handoff Completed per policy Notes Mental Status: alert / awake / arousable and participated in evaluation Nausea / Vomiting: adequately controlled Pain: adequately controlled Airway Patency, RR, SpO2: stable & adequate BP & HR: stable & adequate Hydration State: stable & adequate Anesthetic Complications: no major complications apparent and Pt Satisfied with anesthetic care
[2024-06-25] MEDS: GABAPENTIN 600 MG TAB PO SCH (13:41)
[2024-06-25] MEDS: oxyCODONE HCL IR 5 MG TAB (IMMEDIATE RELEASE) PO PRN (13:41)
[2024-06-25 13:48] VITALS: BP 139/90; PULSE 72; O2SAT 100
[2024-06-26] MEDS ORDERED: CETIRIZINE HCL 10 MG TABLET PO SCH (09:00)
[2024-06-26] MEDS ORDERED: PANTOprazole 40 MG TAB PO SCH (09:00)
== END 2024-06-25 16:23 | disposition home or self-care (01) | DRG 451 ==
LOC: ASU 07:45 → 3N 10:24